=== PATIENT | male | born 1950 | race Caucasian/White ===

== ENCOUNTER → 2021-08-10 09:36 | Outpatient (BNVA) | payer MEDICARE, SELFPAY | PROVIDERS: PCP Internal Medicine Geriatric Medicine; Referring Provider Internal Medicine Geriatric Medicine; Visit Provider Internal Medicine | DX: I10 Essential (primary) hypertension (principal); R07.2 Precordial pain; E78.5 Hyperlipidemia, unspecified; E11.8 Type 2 diabetes mellitus with unspecified complications | CPT/HCPCS: 93005; 99202 ==

== ENCOUNTER 2025-04-21 23:46 | Inpatient (IN) | payer OTHER, SELFPAY ==
--- NOTE | ~2025-04-21 | XR_ITS ---
CLINICAL HISTORY: SOB 1 view chest x-ray Comparison: None provided Findings: Perihilar edema or infiltrates and small layering right-sided effusion. Asymmetric elevation of the right hemidiaphragm. Enlarged cardiac silhouette. No acute fracture. IMPRESSION: Perihilar edema or infiltrates and small layering right-sided effusion. This document has been electronically signed by: Tyrell Alonso MD, PHD on 04/22/2025 01:15:25
--- NOTE | ~2025-04-21 | CT_ITS ---
EXAMINATION: CT CHEST WITHOUT IV CONTRAST INDICATION: hypoxia COMPARISON: Correlation is made with an AP portable view of the chest performed earlier in the day. TECHNIQUE: Helical CT scan of the chest was performed without intravenous contrast. Coronal and sagittal reformatted images were generated and reviewed. This CT exam was performed with one or more of the following dose reduction techniques: automated exposure control, adjustment of the mA and/or kV according to patient size, use of iterative reconstruction technique. DLP: 190 mGy-cm CHEST: THYROID: The thyroid is unremarkable. LUNGS: There is near complete opacification of the right lower lobe and partial opacification of the right middle lobe, consistent with atelectasis or pneumonia. There is elevation of the right hemidiaphragm. There is subsegmental atelectasis in the left lower lobe. MEDIASTINUM: There is no mediastinal lymphadenopathy. ANUSHKA: Evaluation of the hilar regions is limited by lack of intravenous contrast material. CARDIOVASCULATURE: The heart is normal in size. There is no pericardial effusion. The thoracic aorta is normal in caliber. DEGREE OF CORONARY CALCIFICATION: mild PLEURA: There is a small right pleural effusion. No pneumothorax. MAIN AIRWAYS: The mainstem bronchi and proximal branches are patent. AXILLA: There is no axillary lymphadenopathy. BONES AND SOFT TISSUES: There is degenerative disc disease of the spine. UPPER ABDOMEN: The visualized portions of the liver, spleen, and adrenals have an unremarkable unenhanced appearance. CT/CT chest wo IV con IMPRESSION: Near complete opacification of the right lower lobe and partial opacification of the right middle lobe, consistent with atelectasis or pneumonia. Small right pleural effusion. Electronically signed by: Ye Cadena MD 04/22/2025 11:49 AM EDT
[2025-04-21 23:57] VITALS: BP 136/73; PULSE 77; O2SAT 86; BMI 43.8
--- NOTE | 2025-04-21 23:57 | ECG_ITS ---
Test Reason : RE PEAT EKG Blood Pressure : */* mmHG Vent. Rate : 65 BPM Atrial Rate : 65 BPM P-R Int : 312 ms QRS Dur : 118 ms QT Int : 432 ms P-R-T Axes : 59 -32 -8 degrees QTcB Int : 449 ms Artifact in tracing Sinus rhythm with 1st degree A-V block Left axis deviation Low voltage QRS Incomplete right bundle branch block Nonspecific T wave abnormality Abnormal ECG When compared with ECG of 21-Apr-2025 23:54, Premature atrial complexes are no longer Present Referred By: Madeline Garcia Electronically Signed By: ADRIAN MUNOZ
[2025-04-22] VITALS (27 sets, daily range): BP systolic 97–164; BP diastolic 43–85; PULSE 63–78; RESP 11–26; TEMP 36.2–36.7; O2SAT 16–95
--- NOTE | 2025-04-22 00:04 | ED_ITS ---
HPI - General Adult General Chief complaint: Altered Mental Status Stated complaint: sob Time Seen by Provider: 04/21/25 23:57 Source: patient, EMS, RN notes reviewed, old records reviewed and interpreter translator Mode of arrival: EMS Limitations: language barrier and altered mental status History of Present Illness ED Provider: Dr. Madeline Garcia HPI narrative: 75-year-old male with a history of COPD, hypertension and CHF presenting via EMS with reported altered mental status and shortness of breath. Evidently the patient's PRODUCT HANDLER called 911 due to increasing confusion. EMS noted his oxygen level to be 80% on room air upon their arrival to the home. Oxygen level improved to 87% on 3 L nasal cannula oxygen. Patient is describing low back pain which is a chronic issue for him and foot cramping but otherwise has no complaints. He is somewhat altered and unable to give any further history. EMS reports blood sugar of 170. Last took his oxycodone at 9:00 p.m. Related Data Home Medications ?Medication ?Instructions ?Recorded ?Confirmed aspirin 81 mg tablet,delayed 81 mg PO DAILY 08/10/21 release furosemide 20 mg tablet 20 mg PO DAILY 08/10/21 glipizide 5 mg tablet, extended 5 mg PO QAM 08/10/21 release 24 hr insulin detemir U-100 100 unit/mL unit subcut 08/10/21 subcutaneous solution (Levemir U-100 Insulin) lisinopril 10 mg tablet 10 mg PO DAILY 08/10/21 melatonin 3 mg tablet 3 mg PO BEDTIME PRN insomnia 08/10/21 omeprazole 20 mg capsule,delayed 20 mg PO DAILY release oxycodone-acetaminophen 5 mg-325 1 tab PO Q8H PRN 07/1908/10/21 mg tablet pravastatin 40 mg tablet 40 mg PO BEDTIME 08/10/21 Allergies Allergy/AdvReac Type Severity Reaction Status Date / Time No Known Allergies Allergy Verified 04/22/25 00:00 Review of Systems 2 Review of Systems: Yes Unobtainable due to mental status PMFSH Past Medical History Source: old records reviewed and nursing notes reviewed Medical History Other and unspecified hyperlipidemia Essential hypertension Type 2 diabetes mellitus with unspecified complications Surgical History No pertinent past surgical history Family History Family History Mother Heart disease HTN (hypertension) Brother HTN (hypertension) Heart disease Father Diabetes Heart disease Social History Social History Patient Tobacco Use Status: Former Tobacco user Advance Directives: No Advance Directives Information Provided: Yes Physical Exam ED Exam Exam: GENERAL: Chronically ill-appearing, moderate respiratory distress, appears uncomfortable. SKIN: Normal skin color for ethnicity, warm, dry, no rashes noted. HEENT: Normocephalic, atraumatic, no stridor, EOMI. NECK: Soft, supple, full ROM, midline structures nontender, no step-offs, no deformities, no lymphadenopathy. CHEST: Heart regular rhythm, symmetric chest rise and fall. PULMONARY: Coarse lung sounds bilaterally, diminished at the bases, tachypnea, moderate respiratory distress with poor air movement, no wheezes. ABDOMINAL: Soft, protuberant nontender, quiet bowel sounds in all quadrants. : Deferred. MUSCULOSKELETAL: Normal tone, full range of motion, no deformities, 2+ peripheral edema bilaterally. NEURO: Alert and oriented to person, CN II through XII intact, no focal neurologic deficits. PSYCHIATRIC: Anxious affect, appropriate demeanor. Vital Signs: Vital Signs - 24 hr 04/22/25 01:39 04/22/25 01:44 04/22/25 02:56 Temperature Pulse Rate 67 67 Respiratory Rate 22 H 20 Blood Pressure 152/76 H 136/70 Pulse Oximetry 95 95 Oxygen Delivery Method BiPAP BiPAP Oxygen Flow Rate 04/22/25 03:32 04/22/25 04:05 04/22/25 05:03 Temperature 97.6 F Pulse Rate 66 Respiratory Rate 22 H 22 H Blood Pressure 140/72 H 120/43 L Pulse Oximetry 89 L Oxygen Delivery Method BiPAP Oxygen Flow Rate 15 BMI result Body Mass Index 43.8 Course Reevaluation(s) Reevaluation #1: Used single lower target volume due to history of heart failure. Patient is not hypotensive though he is flagging for sepsis with COPD exacerbation, BiPAP requirement and respiratory rate. He has been covered with antibiotics including Rocephin and doxycycline. Initial lactic of 1.5. I?m doing a reperfusion exam at 0327 time and found continued confusion. Arterial Oxygen Saturation: 94% on BiPAP Vital Sign Review: Blood pressure is 136/70, heart rate 67 respiratory rate of 20, oxygen saturation 95% on BiPAP 60% FiO2. Cardiopulmonary Assessment: Heart: Normal sinus rhythm, rate in the 60s, no murmur heard Lungs: Slight tachypnea, diminished movement at the bases, relatively unchanged Peripheral Pulse Evaluation: Pulses: Strong peripheral pulses in all extremities Capillary Refill Evaluation: Brisk capillary refill in all extremities Skin Exam color/condition: Normal skin color ethnicity, dry and warm Urine Output: No urine output since arriving to the emergency department Time: 03:27 Medications Administered Discontinued Medications Generic Name Dose Route Start Last Admin Trade Name Erendira PRN Reason Stop Dose Admin Ceftriaxone Sodium 1 gm 04/22/25 03:15 04/22/25 03:27 Ceftriaxone Sodium 1 Gm Vial IVPUSH 04/22/25 03:16 1 gm ONCE ONE Administration Furosemide 40 mg 04/22/25 03:23 04/22/25 03:32 Furosemide 40 Mg/4 Ml Vial IVPUSH 04/22/25 03:24 40 mg ONCE ONE Administration Protocol Doxycycline Hyclate 100 mg/ 250 mls @ 166.67 mls/hr 04/22/25 03:15 04/22/25 06:05 Sodium Chloride IV 04/22/25 04:44 Infused ONCE ONE Infusion Medical Decision Making Medical Decision Making MDM Narrative: Patient presents in respiratory distress. Differential diagnosis includes flash pulmonary edema, COPD exacerbation, pneumothorax, pneumonia, ACS, pulmonary embolism, metabolic acidosis, among many others. The serious nature of the patient's symptoms makes this presentation complex, with potential for significant, worsening morbidity and mortality without immediate treatment/intervention. Patient immediately placed on a non-rebreather which improved his oxygenation from 50% on room air to 95% on 15 L. we will attempt to transition to OxyMask. He is moving air and has no wheezes on my exam however, his substantial hypoxia is concerning. We will check for COVID-19, CHF and COPD exacerbations, add lactic and cultures to his workup. He has no fever but is somewhat altered. Foul-smelling urine. EKG is nonischemic. 3:32 AM 04/22/2025 (Dr. Madeline Garcia, D.O.) patient remains acidotic, hypercarbic. His BiPAP is somewhat ineffective but he is having a hard time keeping it on. We will continue to attempt BiPAP with a better fitting mask. Contacted hospitalist who is refusing admission due to poor response to BiPAP so far. They agree that his condition would benefit from ICU level of care. We will contact retail service representative, Dr. Cantu. 6:44 AM 04/22/2025 (Dr. Madeline Garcia, D.O.) blood gas has not improved by much. His pH has improved to 7.35 however, his pCO2 after 6 hours on BiPAP is only down to 77. Case discussed with Dr. Cantu, who agrees with plan for admission to ICU. Admitted in serious condition. Differential Diagnosis Differential Diagnoses: The differential diagnosis associated with the presentation includes (As above) Admission/Observation Consideration of admission/observation: Escalation of care including admission/observation considered Lab Data MDM Lab Attestation statement: I reviewed the patient's lab results. 04/22/25 00:27 04/22/25 00:27 Labs: Lab Results 04/22/25 04/22/25 04/22/25 Range/Units 00:16 00:27 00:30 WBC 6.4 (4.8-10.8) X10*3/uL RBC 6.64 H (4.60-5.80) X10*6/uL Hgb 17.1 (14.0-18.0) g/dl Hct 56.8 H (42.0-52.0) % MCV 85.5 (80.0-98.0) fL MCH 25.8 L (27.0-33.0) pg MCHC 30.1 L (31.0-36.0) g/dl RDW 19.1 H (11.0-16.0) % Plt Count 181 (160-400) X10*3/uL MPV 10.8 (9.4-12.4) fL Immature Gran % (Auto) 1.1 H (0.0-0.4) % Neut % (Auto) 83.1 H (45-73) % Lymph % (Auto) 9.2 L (20-40) % [place] % (Auto) 5.6 (2-11) % Eos % (Auto) 0.5 (0-4) % Baso % (Auto) 0.5 (0-2) % Lymph # (Auto) 0.6 L (1.2-4.9) X10*3/uL [place] # (Auto) 0.4 (0.1-1.2) X10*3/uL Eos # (Auto) 0.0 (0.0-0.4) X10*3/uL Baso # (Auto) 0.0 (0.0-0.2) X10*3/uL Abs Immat Gran (auto) 0.07 H (0.00-0.03) X10*3/uL Absolute Neuts (auto) 5.3 (2.0-8.3) x10*3/uL Absolute Nucleated RBC 0.080 H (0.0-0.012) X10*3/uL Nucleated RBC % (auto) 1.3 H (0.0-0.2) /100WBC PT 15.1 H (10.9-12.4) SEC INR 1.3 H (0.9-1.1) VBG pH (7.32-7.43) VBG pCO2 mmHg VBG pO2 mmHg VBG HCO3 (22-26) mmol/L VBG O2 Saturation % VBG Base Excess mmol/L Sodium 148 H (135-145) mmol/L Potassium 4.8 (3.3-5.1) mmol/L Chloride 102 (96-108) mmol/L Carbon Dioxide 38 H (22-29) mmol/L Anion Gap 13 (12-20) BUN 22 H (9-16) mg/dL Creatinine 1.38 (0.5-1.4) mg/dL Estim Creat Clear Calc 67.7 Estimated GFR 50 Random Glucose 112 (60-115) mg/dL Lactic Acid 1.5 (0.5-2.0) mmol/L Calcium 9.1 (8.4-10.2) mg/dL Magnesium 1.9 (1.6-2.6) mg/dL Total Bilirubin 1.1 H (0.0-1.0) mg/dL AST 18 (5-37) U/L ALT 16 (0-40) U/L Alkaline Phosphatase 103 (39-117) U/L Troponin I High Sens 40.6 H (<3.5-35.0) ng/L B-Natriuretic Peptide 384 H (<100) pg/mL Total Protein 7.4 (6.5-8.0) g/dL Albumin 4.2 (3.5-5.0) g/dL Urine Color Urine Appearance Urine pH (5.0-9.0) Ur Specific [place] (1.005-1.025) Urine Protein (Neg-Trace) mg/dL Urine Glucose (UA) (Negative) mg/dL Urine Ketones (Negative) mg/dL Urine Blood (Negative) Urine Nitrite (Negative) Ur Leukocyte Esterase (Negative) Urine Opiates Screen (Not Detect) Ur Buprenorphine Scrn (Not Detect) ng/mL Ur Oxycodone Screen (Not Detect) ng/mL Urine Methadone Screen (Not Detect) ng/mL Urine Fentanyl Screen (Not Detect) Ur Barbiturates Screen (Not Detect) Ur Phencyclidine Scrn (Not Detect) Ur Amphetamines Screen (Not Detect) U Benzodiazepines Scrn (Not Detect) Urine Cocaine Screen (Not Detect) U Marijuana (THC) Screen (Not Detect) Influenza Type A (PCR) NEGATIVE (Negative) Influenza Type B (PCR) NEGATIVE (Negative) RSV RNA Qual (PCR) NEGATIVE (Negative) SARS-CoV-2 RNA (RT-PCR) NEGATIVE (Negative) 04/22/25 04/22/25 04/22/25 Range/Units 00:39 03:04 04:13 WBC (4.8-10.8) X10*3/uL RBC (4.60-5.80) X10*6/uL Hgb (14.0-18.0) g/dl Hct (42.0-52.0) % MCV (80.0-98.0) fL MCH (27.0-33.0) pg MCHC (31.0-36.0) g/dl RDW (11.0-16.0) % Plt Count (160-400) X10*3/uL MPV (9.4-12.4) fL Immature Gran % (Auto) (0.0-0.4) % Neut % (Auto) (45-73) % Lymph % (Auto) (20-40) % [place] % (Auto) (2-11) % Eos % (Auto) (0-4) % Baso % (Auto) (0-2) % Lymph # (Auto) (1.2-4.9) X10*3/uL [place] # (Auto) (0.1-1.2) X10*3/uL Eos # (Auto) (0.0-0.4) X10*3/uL Baso # (Auto) (0.0-0.2) X10*3/uL Abs Immat Gran (auto) (0.00-0.03) X10*3/uL Absolute Neuts (auto) (2.0-8.3) x10*3/uL Absolute Nucleated RBC (0.0-0.012) X10*3/uL Nucleated RBC % (auto) (0.0-0.2) /100WBC PT (10.9-12.4) SEC INR (0.9-1.1) VBG pH 7.25 L 7.28 L (7.32-7.43) VBG pCO2 89 88 mmHg VBG pO2 32 45 mmHg VBG HCO3 39 H 42 H (22-26) mmol/L VBG O2 Saturation 35.0 64.0 % VBG Base Excess 7.3 11.0 mmol/L Sodium (135-145) mmol/L Potassium (3.3-5.1) mmol/L Chloride (96-108) mmol/L Carbon Dioxide (22-29) mmol/L Anion Gap (12-20) BUN (9-16) mg/dL Creatinine (0.5-1.4) mg/dL Estim Creat Clear Calc Estimated GFR Random Glucose (60-115) mg/dL Lactic Acid (0.5-2.0) mmol/L Calcium (8.4-10.2) mg/dL Magnesium (1.6-2.6) mg/dL Total Bilirubin (0.0-1.0) mg/dL AST (5-37) U/L ALT (0-40) U/L Alkaline Phosphatase (39-117) U/L Troponin I High Sens 41.3 H (<3.5-35.0) ng/L B-Natriuretic Peptide (<100) pg/mL Total Protein (6.5-8.0) g/dL Albumin (3.5-5.0) g/dL Urine Color Urine Appearance Urine pH (5.0-9.0) Ur Specific [place] (1.005-1.025) Urine Protein (Neg-Trace) mg/dL Urine Glucose (UA) (Negative) mg/dL Urine Ketones (Negative) mg/dL Urine Blood (Negative) Urine Nitrite (Negative) Ur Leukocyte Esterase (Negative) Urine Opiates Screen (Not Detect) Ur Buprenorphine Scrn (Not Detect) ng/mL Ur Oxycodone Screen (Not Detect) ng/mL Urine Methadone Screen (Not Detect) ng/mL Urine Fentanyl Screen (Not Detect) Ur Barbiturates Screen (Not Detect) Ur Phencyclidine Scrn (Not Detect) Ur Amphetamines Screen (Not Detect) U Benzodiazepines Scrn (Not Detect) Urine Cocaine Screen (Not Detect) U Marijuana (THC) Screen (Not Detect) Influenza Type A (PCR) (Negative) Influenza Type B (PCR) (Negative) RSV RNA Qual (PCR) (Negative) SARS-CoV-2 RNA (RT-PCR) (Negative) 04/22/25 04/22/25 Range/Units 05:21 06:05 WBC (4.8-10.8) X10*3/uL RBC (4.60-5.80) X10*6/uL Hgb (14.0-18.0) g/dl Hct (42.0-52.0) % MCV (80.0-98.0) fL MCH (27.0-33.0) pg MCHC (31.0-36.0) g/dl RDW (11.0-16.0) % Plt Count (160-400) X10*3/uL MPV (9.4-12.4) fL Immature Gran % (Auto) (0.0-0.4) % Neut % (Auto) (45-73) % Lymph % (Auto) (20-40) % [place] % (Auto) (2-11) % Eos % (Auto) (0-4) % Baso % (Auto) (0-2) % Lymph # (Auto) (1.2-4.9) X10*3/uL [place] # (Auto) (0.1-1.2) X10*3/uL Eos # (Auto) (0.0-0.4) X10*3/uL Baso # (Auto) (0.0-0.2) X10*3/uL Abs Immat Gran (auto) (0.00-0.03) X10*3/uL Absolute Neuts (auto) (2.0-8.3) x10*3/uL Absolute Nucleated RBC (0.0-0.012) X10*3/uL Nucleated RBC % (auto) (0.0-0.2) /100WBC PT (10.9-12.4) SEC INR (0.9-1.1) VBG pH 7.35 (7.32-7.43) VBG pCO2 77 mmHg VBG pO2 61 mmHg VBG HCO3 43 H (22-26) mmol/L VBG O2 Saturation 87.0 % VBG Base Excess 13.3 mmol/L Sodium (135-145) mmol/L Potassium (3.3-5.1) mmol/L Chloride (96-108) mmol/L Carbon Dioxide (22-29) mmol/L Anion Gap (12-20) BUN (9-16) mg/dL Creatinine (0.5-1.4) mg/dL Estim Creat Clear Calc Estimated GFR Random Glucose (60-115) mg/dL Lactic Acid (0.5-2.0) mmol/L Calcium (8.4-10.2) mg/dL Magnesium (1.6-2.6) mg/dL Total Bilirubin (0.0-1.0) mg/dL AST (5-37) U/L ALT (0-40) U/L Alkaline Phosphatase (39-117) U/L Troponin I High Sens (<3.5-35.0) ng/L B-Natriuretic Peptide (<100) pg/mL Total Protein (6.5-8.0) g/dL Albumin (3.5-5.0) g/dL Urine Color Yellow Urine Appearance Clear Urine pH 5.5 (5.0-9.0) Ur Specific [place] 1.010 (1.005-1.025) Urine Protein Negative (Neg-Trace) mg/dL Urine Glucose (UA) Negative (Negative) mg/dL Urine Ketones Negative (Negative) mg/dL Urine Blood Negative (Negative) Urine Nitrite Negative (Negative) Ur Leukocyte Esterase Negative (Negative) Urine Opiates Screen Not Detected (Not Detect) Ur Buprenorphine Scrn Not Detected (Not Detect) ng/mL Ur Oxycodone Screen Not Detected (Not Detect) ng/mL Urine Methadone Screen Not Detected (Not Detect) ng/mL Urine Fentanyl Screen Not Detected (Not Detect) Ur Barbiturates Screen Not Detected (Not Detect) Ur Phencyclidine Scrn Not Detected (Not Detect) Ur Amphetamines Screen Not Detected (Not Detect) U Benzodiazepines Scrn Not Detected (Not Detect) Urine Cocaine Screen Not Detected (Not Detect) U Marijuana (THC) Screen Not Detected (Not Detect) Influenza Type A (PCR) (Negative) Influenza Type B (PCR) (Negative) RSV RNA Qual (PCR) (Negative) SARS-CoV-2 RNA (RT-PCR) (Negative) Independent Interpretation I performed an independent interpretation of an: EKG Interpretation: My independent interpretation of the ECG reveals normal sinus rhythm with rate of 78, left axis deviation, first-degree AV block, right bundle branch block, no ST elevations or depressions to suggest ischemic changes, relatively unchanged from previous on 08/10/2021. Radiology Impression Discussion of test interpretation with radiology: I have reviewed the radiologist's reading. Radiologist Impression: 1 view chest x-ray Comparison: None provided Findings: Perihilar edema or infiltrates and small layering right-sided effusion. Asymmetric elevation of the right hemidiaphragm. Enlarged cardiac silhouette. No acute fracture. IMPRESSION: Perihilar edema or infiltrates and small layering right-sided effusion. This document has been electronically signed by: Tyrell Alonso MD, PHD on 04/22/2025 01:15:25 Social Determinants Patient?s care significantly limited by Social Determinants of Health including: Problems related to primary support group Critical Care Time Critical Care Time Critical Care Time: Yes Total Critical Care Time: 55 Attestation: CRITICAL CARE TIME: 55 minutes of critical care time was spent in direct patient care at the bedside or in the immediate area with this patient. Critical care was necessary to treat or prevent imminent or life-threatening deterioration of the following conditions acute hypoxic and hypercarbic respiratory failure due to COPD exacerbation versus CHF exacerbation versus obesity hypoventilation. This patient is high risk for decompensation and/or . This time was spent assessing and managing the patient, interpreting labs and imaging, coordinating care with other medical providers, gathering history from either the patient, their representatives, EMS or chart review, and discussing management with ICU team. Discharge Plan Discharge Clinical Impression: Acute respiratory failure with hypoxia and hypercarbia, Acute encephalopathy, Hypernatremia, Acute exacerbation of CHF (congestive heart failure), Acute exacerbation of chronic obstructive pulmonary disease Patient Disposition: Admitted As Inpatient Print Language: Czech
[2025-04-22 00:41] LABS: MANUAL DIFF FLAG NO
[2025-04-22 00:42] LABS: Hemoglobin 17.1 g/dl (14.0-18.0); Imm Gran Abs Auto 0.07 X10*3/uL (0.00-0.03); Imm Gran Pct Auto 1.1 % (0.0-0.4); Lymphocytes Absolute Auto 0.6 X10*3/uL (1.2-4.9); Mean Corpuscular HGB Conc 30.1 g/dl (31.0-36.0); Mean Corpuscular Hemoglobin 25.8 pg (27.0-33.0); Mean Corpuscular Volume 85.5 fL (80.0-98.0); NRBC Abs Auto 0.080 X10*3/uL (0.0-0.012); Platelet Count 181 X10*3/uL (160-400); Red Blood Count 6.64 X10*6/uL (4.60-5.80); Venous Blood Gas Refer to POC result; White Blood Count 6.4 X10*3/uL (4.8-10.8)
[2025-04-22 00:44] LABS: VBG HCO3 39 mmol/L (22-26); VBG O2 % Saturation 35.0 %
[2025-04-22 00:45] LABS: Hematocrit 56.8 % (42.0-52.0); NRBC Pct Auto 1.3 /100WBC (0.0-0.2)
[2025-04-22 00:47] LABS: INTERNATIONAL NORM RATIO 1.3 (0.9-1.1); Prothrombin Time 15.1 SEC (10.9-12.4)
[2025-04-22 00:55] LABS: Alanine Aminotransferase 16 U/L (0-40); Albumin Level 4.2 g/dL (3.5-5.0); Alkaline Phosphatase 103 U/L (39-117); Anion Gap 13 (12-20); Aspartate Amino Transferase 18 U/L (5-37); Blood Urea Nitrogen 22 mg/dL (9-16); Calcium 9.1 mg/dL (8.4-10.2); Carbon Dioxide 38 mmol/L (22-29); Chloride 102 mmol/L (96-108); Creatinine Clr Calc Pharmacy 67.7; Estimated Glomerular Filt Rate 50; Magnesium 1.9 mg/dL (1.6-2.6); Potassium 4.8 mmol/L (3.3-5.1); Sodium 148 mmol/L (135-145); Total Protein 7.4 g/dL (6.5-8.0)
[2025-04-22 01:02] LABS: B Type Natriuretic Peptide 384 pg/mL (<100); Troponin-I High Sensitivity 40.6 ng/L (<3.5-35.0)
[2025-04-22 01:05] LABS: Resp Syncy Virus RNA Qual PCR NEGATIVE (Negative); SARS COV2 PCR INHOUSE NEGATIVE (Negative)
--- NOTE | 2025-04-22 02:46 | PC.NURSE ---
Addendum entered by Melissa Villela RN 04/22/25 07:09: RN to Rn report called to Torri in ICU. Addendum entered by Melissa Villela RN 04/22/25 05:08: pt noted to have hallucinations reaching out for things that are not there and talking to himself. Pt removed both IVs, catheter intact, bleeding controlled and dry clean dressing applied Pt also removed monitor wires, bipap mask and gown. 18G IV placed in left upper arm, pt tolerated well. pt educated on importance of keeping mask and monitor wires on. pts needs met at this time. call mayo is within reach. plan of care ongoing . Original Note: pt biba from home, VETERINARY PARASITOLOGIST reporting pt having increased confusion and O2 sat in the 80s. Pt has hx of COPD and CHF but not on O2 at home per VETERINARY PARASITOLOGIST. Upon arrival to the ED pt immediately placed on nonrebreather 15L as O2 sat noted to be in 60s on room air and pt improved to 95%. Pt primarily swiss speaking only, poor historian, alert to self, place, and able to answer questions appropriately. Pt appears unkempt and smells of foul urine. Pt complaining of 10/10 back pain that is chronic. Pt has 20G IV in left hand placed by EMS. Pt changed over into hospital gown, placed on the monitor, and male purwick applied. Pending urine collection at this time.
[2025-04-22 03:07] LABS: Venous Blood Gas Refer to POC result
[2025-04-22 03:09] LABS: VBG HCO3 42 mmol/L (22-26); VBG O2 % Saturation 64.0 %
[2025-04-22] MEDS: Furosemide 40 MG/4 ML VIAL IVPUSH (03:32)
[2025-04-22 04:39] LABS: Troponin-I High Sensitivity 41.3 ng/L (<3.5-35.0)
[2025-04-22 05:31] LABS: Appearance Urine Clear; Glucose Urine UA Negative (Negative); PH 5.5 (5.0-9.0); Specific Gravity - Urine 1.010 (1.005-1.025)
[2025-04-22 06:03] LABS: Cannabinoid Screen Urine Not Detected (Not Detect)
[2025-04-22 06:07] LABS: Venous Blood Gas Refer to POC result
[2025-04-22 06:09] LABS: VBG HCO3 43 mmol/L (22-26); VBG O2 % Saturation 87.0 %
[2025-04-22] MEDS: Lidocaine 4 % Patch ADH..PATCH 1 PATCH TRANSDERMA (09:59)
--- NOTE | 2025-04-22 10:06 | PHA.MEDREC ---
Addendum entered by Josh Daniels RPh 04/22/25 10:16: MED REC REVIEWED BY [facility] Original Note: Pharmacy Consult ? Medication Reconciliation Pharmacy has completed the medication reconciliation. Spoke with Jadyn ([phone];contact in as Other Relationship) and she was able to confirm the pt medications. per Jadyn; pt takes Lantus 25 units in the morning, Furosemide 20mg; pt has not filled that since 10/23 and I spoke with pt pharmacy ([facility]) and they confirmed the pt last picked that up 10/24for 90.
--- NOTE | 2025-04-22 10:11 | P.HPCC_ITS ---
History of Present Illness Date of Service: 04/22/25 Chief Complaint: Respiratory distress 75-year-old gentleman with underlying hypertension, diabetes mellitus, COPD, chronic back pain, and unspecified congestive heart failure present in on 04/22/2025 complaining of slowly worsening dyspnea. On ER patient noted to be hypoxic and hypercapnic requiring BiPAP support. He was started on empiric diuresis and admitted to the intensive care unit. Review of Systems 2 Constitutional: Constitutional: Denies daytime sleepiness, Denies excessive sweating, Denies fatigue, Denies fever(s), Denies lethargy, Denies malaise, Denies night sweats, Denies snoring and Denies weight loss Eyes: Eyes: Denies blurry vision and Denies itchy eyes ENT: Denies nasal congestion, Denies post nasal drip, Denies sinus pain, Denies sinus pressure and Denies other ( Thrush) Cardiovascular: Cardiovascular: Denies chest pain, Denies pedal edema, Reports dyspnea, Reports dyspnea on exertion, Reports orthopnea and Denies paroxysmal nocturnal dyspnea Respiratory: Respiratory: Denies cough, Denies hemoptysis, Denies excessive phlegm production, Reports dyspnea, Reports dyspnea on exertion, Denies snoring and Denies wheezing Gastrointestinal: Gastrointestinal: Denies abdominal pain and Denies heartburn Musculoskeletal: Musculoskeletal: Reports back pain and Denies joint swelling Integumentary/Breasts: Skin/Breast: Denies rash Neurologic: Denies memory loss and Denies seizure-like activity Psychiatric: Psychiatric: Denies abnormal sleep pattern, Denies anxiety and Denies memory loss Endocrine: Endocrine: Denies excessive sweating, Denies fatigue and Denies heat intolerance Hematologic/Lymphatic: Hematologic/Lymphatic: Denies easy bruising Allergic/Immunologic: Allergic/Immunologic: Denies itchy eyes, Denies seasonal rhinorrhea and Denies wheezing PMFSH Past Medical History Medical History Other and unspecified hyperlipidemia Essential hypertension Type 2 diabetes mellitus with unspecified complications Family History Family History Mother Heart disease HTN (hypertension) Brother HTN (hypertension) Heart disease Father Diabetes Heart disease Surgical History Surgical History No pertinent past surgical history Social History Social History Household Members: Other Housing: Unknown / Unable to assess Do you presently have visiting nurse or other home services: No Patient Tobacco Use Status: Former Tobacco user Smoked in Last 30 Days: No Patient Interested in Nicotine Replacement: No Patient Given Instructions on How to Stop Smoking: No Second Hand Smoke Exposure: No Worship Healthcare Practices: Spiritism Advance Directives: No Advance Directives Information Provided: Yes Advance Directives on File: No Do you have a plan to hurt others: No Plan Recently lost weight without trying: No Eating poorly because of decreased appetite: No Nutrition Risks: On aspiration precautions Poor oral hygiene: Yes Meds Allergies Allergy/AdvReac Type Severity Reaction Status Date / Time No Known Allergies Allergy Verified 04/22/25 00:00 Active Medications: Current Medications Acetazolamide (Acetazolamide Sodium 500 Mg Vial) 375 mg IVPUSH BID [facility] Stop: 04/24/25 21:01 Last Admin: 04/22/25 09:59 Dose: 375 mg Lidocaine (Lidocaine 4 % Patch Adh..Patch) 1 patch TRANSDERMA DAILY [facility]; Protocol Last Admin: 04/22/25 09:59 Dose: 1 patch Home Medications ?Medication ?Instructions ?Recorded ?Confirmed ?Last Taken ?Type furosemide 20 mg tablet 20 mg PO DAILY 08/10/2103/11 Unknown History glipizide 5 mg tablet, extended 5 mg PO DAILY 08/10/21 04/22/25 Unknown History release 24 hr lisinopril 10 mg tablet 10 mg PO DAILY 08/10/2103/11 Unknown History omeprazole 20 mg capsule,delayed 20 mg PO DAILY@0630 1 10/10/20 04/22/25 Unknown History release oxycodone-acetaminophen 5 mg-325 1 tab PO Q8H PRN Pain 08/10/21 04/22/25 Unknown History mg tablet pravastatin 40 mg tablet 40 mg PO BEDTIME 08/10/21 Unknown History insulin glargine 100 unit/mL 25 unit subcut DAILY 03/1104/22/25 Unknown History subcutaneous solution (Lantus U-100 Insulin) Physical Exam 2 Vital Signs: Vital Signs: Last Vital Signs Temp 97.6 F 04/22/25 05:03 Pulse 68 04/22/25 10:00 Resp 17 04/22/25 10:00 BP 145/73 H 04/22/25 10:00 Pulse Ox 88 L 04/22/25 10:00 O2 Del Method BiPAP 04/22/25 10:00 O2 Flow Rate 15 04/22/25 05:03 FiO2 30 04/22/25 10:00 BMI result Body Mass Index 43.8 Const: General: no acute distress, alert and awake Nutritional Appearance: obese Eyes: Sclerae: sclerae normal EOM: EOMs intact bilaterally Neck: Neck: Yes no lymphadenopathy, Yes trachea midline and Yes supple Resp: Effort & Inspection: normal respiratory effort and no respiratory distress Auscultation: clear to auscultation bilaterally Cardio: Rate: regular rate Rhythm: regular rhythm Heart sounds: no gallops, no murmurs and no rubs GI: Palpation (GI): Soft to palpation and Other GI palpation findings present ( Nontender) Auscultation: normal bowel sounds Extrem: General: Yes no pedal edema, No clubbing and No cyanosis Results Labs 04/22/25 00:27 04/22/25 00:27 Labs: Laboratory Results - last 24 hr 04/22/25 04/22/25 04/22/25 00:16 00:27 00:30 MCV 85.5 MCH 25.8 L MCHC 30.1 L RDW 19.1 H Plt Count 181 MPV 10.8 Immature Gran % (Auto) 1.1 H Neut % (Auto) 83.1 H Lymph % (Auto) 9.2 L [place] % (Auto) 5.6 Eos % (Auto) 0.5 Baso % (Auto) 0.5 Lymph # (Auto) 0.6 L [place] # (Auto) 0.4 Eos # (Auto) 0.0 Baso # (Auto) 0.0 Abs Immat Gran (auto) 0.07 H Absolute Neuts (auto) 5.3 Absolute Nucleated RBC 0.080 H Nucleated RBC % (auto) 1.3 H PT 15.1 H INR 1.3 H VBG pH VBG pCO2 VBG pO2 VBG HCO3 VBG O2 Saturation VBG Base Excess Anion Gap 13 Estim Creat Clear Calc 67.7 Estimated GFR 50 Random Glucose 112 Lactic Acid 1.5 Calcium 9.1 Magnesium 1.9 Total Bilirubin 1.1 H AST 18 ALT 16 Alkaline Phosphatase 103 B-Natriuretic Peptide 384 H Total Protein 7.4 Albumin 4.2 Urine Color Urine Appearance Urine pH Ur Specific [place] Urine Protein Urine Glucose (UA) Urine Ketones Urine Blood Urine Nitrite Ur Leukocyte Esterase Urine Opiates Screen Ur Buprenorphine Scrn Ur Oxycodone Screen Urine Methadone Screen Urine Fentanyl Screen Ur Barbiturates Screen Ur Phencyclidine Scrn Ur Amphetamines Screen U Benzodiazepines Scrn Urine Cocaine Screen U Marijuana (THC) Screen Influenza Type A (PCR) NEGATIVE Influenza Type B (PCR) NEGATIVE RSV RNA Qual (PCR) NEGATIVE SARS-CoV-2 RNA (RT-PCR) NEGATIVE 04/22/25 04/22/25 04/22/25 00:39 03:04 05:21 MCV MCH MCHC RDW Plt Count MPV Immature Gran % (Auto) Neut % (Auto) Lymph % (Auto) [place] % (Auto) Eos % (Auto) Baso % (Auto) Lymph # (Auto) [place] # (Auto) Eos # (Auto) Baso # (Auto) Abs Immat Gran (auto) Absolute Neuts (auto) Absolute Nucleated RBC Nucleated RBC % (auto) PT INR VBG pH 7.25 L 7.28 L VBG pCO2 89 88 VBG pO2 32 45 VBG HCO3 39 H 42 H VBG O2 Saturation 35.0 64.0 VBG Base Excess 7.3 11.0 Anion Gap Estim Creat Clear Calc Estimated GFR Random Glucose Lactic Acid Calcium Magnesium Total Bilirubin AST ALT Alkaline Phosphatase B-Natriuretic Peptide Total Protein Albumin Urine Color Yellow Urine Appearance Clear Urine pH 5.5 Ur Specific [place] 1.010 Urine Protein Negative Urine Glucose (UA) Negative Urine Ketones Negative Urine Blood Negative Urine Nitrite Negative Ur Leukocyte Esterase Negative Urine Opiates Screen Not Detected Ur Buprenorphine Scrn Not Detected Ur Oxycodone Screen Not Detected Urine Methadone Screen Not Detected Urine Fentanyl Screen Not Detected Ur Barbiturates Screen Not Detected Ur Phencyclidine Scrn Not Detected Ur Amphetamines Screen Not Detected U Benzodiazepines Scrn Not Detected Urine Cocaine Screen Not Detected U Marijuana (THC) Screen Not Detected Influenza Type A (PCR) Influenza Type B (PCR) RSV RNA Qual (PCR) SARS-CoV-2 RNA (RT-PCR) 04/22/25 06:05 MCV MCH MCHC RDW Plt Count MPV Immature Gran % (Auto) Neut % (Auto) Lymph % (Auto) [place] % (Auto) Eos % (Auto) Baso % (Auto) Lymph # (Auto) [place] # (Auto) Eos # (Auto) Baso # (Auto) Abs Immat Gran (auto) Absolute Neuts (auto) Absolute Nucleated RBC Nucleated RBC % (auto) PT INR VBG pH 7.35 VBG pCO2 77 VBG pO2 61 VBG HCO3 43 H VBG O2 Saturation 87.0 VBG Base Excess 13.3 Anion Gap Estim Creat Clear Calc Estimated GFR Random Glucose Lactic Acid Calcium Magnesium Total Bilirubin AST ALT Alkaline Phosphatase B-Natriuretic Peptide Total Protein Albumin Urine Color Urine Appearance Urine pH Ur Specific [place] Urine Protein Urine Glucose (UA) Urine Ketones Urine Blood Urine Nitrite Ur Leukocyte Esterase Urine Opiates Screen Ur Buprenorphine Scrn Ur Oxycodone Screen Urine Methadone Screen Urine Fentanyl Screen Ur Barbiturates Screen Ur Phencyclidine Scrn Ur Amphetamines Screen U Benzodiazepines Scrn Urine Cocaine Screen U Marijuana (THC) Screen Influenza Type A (PCR) Influenza Type B (PCR) RSV RNA Qual (PCR) SARS-CoV-2 RNA (RT-PCR) Assessment and Plan (1) Acute respiratory failure with hypoxia and hypercarbia: Status: Acute (2) Type 2 diabetes mellitus with unspecified complications: Status: Acute (3) Essential hypertension: Status: Acute Plan Assessment: 75-year-old gentleman admitted with acute hypoxic and hypercapnic respiratory failure on a background of COPD and unspecified congestive heart failure initially requiring BiPAP support. Plan: Neuro: No acute issues. Cardiac: Likely underlying congestive heart failure, improving with diuresis. 2D echocardiogram is pending. Pulmonary: Acute hypoxic and hypercapnic respiratory failure likely secondary to congestive heart failure exacerbation requiring BiPAP support, continue to titrate off as tolerated. Renal: No acute issues. Endo: No acute issues. Underlying diabetes mellitus. GI: No acute issues. ID: No acute issues Heme/Onc: No acute issues. Psych: No acute issues. Miscellaneous: No acute issues. Prophylaxis: Heparin Diet: NPO while on BiPAP Critical care time spent: 60 minutes
--- NOTE | 2025-04-22 12:00 | CA_ITS ---
Transthoracic Echocardiogram Patient (Last, First, Middle): Rangel Calderon, Gender: Male Date of : 1950 Age: 75 Procedure Date: 04/22/2025 Procedure Type: Transthoracic Echocardiogram Location: ICU Height: 182.88 cm Weight: 146.06 kg BSA: 2.61 m2 Heart Rate: bpm BP: 149 / 71 mmHg Transportation Engineer: TO Referring MD: Tal Cantu MD Symptoms: dyspnea Study Quality: Fair, contrast ECG Rhythm: Sinus Conclusions: - The left ventricular systolic function is normal. The calculated ejection fraction is 64% by biplane method. - No obvious valvular pathology seen on this study. Findings Procedure Information Contrast agent, definity, is being given per protocol without apparent complications. Left Ventricle Normal left ventricular cavity size. The left ventricular systolic function is normal. The calculated ejection fraction is 64% by biplane method. There is no evidence of regional wall motion abnormalities. Diastolic function is normal for age. There is mild septal asymmetric hypertrophy. Right Ventricle Mildly increased right ventricular cavity size. There is normal right ventricular systolic function. Atria Both atria are normal in size. Aortic Valve There is a normal trileaflet aortic valve. There is no aortic valve stenosis. There is no aortic valve regurgitation. Mitral Valve The mitral valve appears normal. There is no mitral valve regurgitation. There is no mitral valve stenosis. Pulmonic Valve The pulmonic valve is likely normal. Tricuspid Valve There is trace tricuspid valve regurgitation. Tricuspid regurgitation envelope is inadequate for calculation of right ventricular systolic pressure. There is no evidence of pulmonary hypertension. Great Vessels The asc aorta is normal in size. Venous The inferior vena cava is mildly dilated and collapses less than 50% with inspiration. (on Bipap). Prior Study Comparison No prior study available for comparison. Recommendations, Care & Conclusions No obvious valvular pathology seen on this study. Measurements 2D Linear Measurements IVSd: 1.22 0.6-0.9/0.6-1.0 cm LVIDd: 5.21 3.9-5.3/4.2-5.9 cm LVIDd Index: 2.00 2.4-3.2/2.2-3.1 cm/m2 LVIDs: 3.34 2.0-3.6 cm LVPWd: 1.12 0.7-1.1 cm LA Diam: 2.90 2.7-3.8/3.0-4.0 cm LAIDs Index: 1.11 1.5-2.3 cm/m2 LV Mass: 300.51 67-162/88-224 g LV Mass Index: 115.14 43-95/49-115 g/m2 LVOT Diam: 2.60 3.0+(-)1.3 cm 2D Systolic Function EF 4C: 64.80 >55% EF 2C: 63.80 >55% EF BiP: 63.60 >55% Mitral Valve MV Pk E: 0.65 MV PK A: 0.62 MV Decel Time: 255.00 E/A: 1.00 E'Lateral: 9.90 E'Medial: 4.24 E/E' Med: 15.30 E/E' Lat: 6.50 PHT: 75.00 MVA PHT: 2.93 Decel [place]: 2.54 Aortic Valve AoV Pk Atif: 1.32 AoV Mn Atif: 0.99 AoV VTI: 0.30 AoV Pk Grad: 7.00 Aov Mn Grad: 4.00 [place] Cont.VTI: 3.90 LVOT LVOT Pk Atif: 0.99 LVOT Mn Atif: 0.70 LVOT VTI: 0.22 LVOT Pk Grad: 4.00 LVOT Mn Grad: 2.00 LVOT Diam: 2.60 LVOT Area: 5.31 Diastolic Function MV Pk E: 0.65 MV Pk A: 0.62 E/A: 1.00 E'Medial: 4.24 E/E' Med: 15.30 E' Laterial: 9.90 E/E' Lat: 6.50 Right Ventricle TAPSE (mm): 23.90 TVS' Atif: 14.30 Great Vessels Aorta Sinus of Valsalva: 3.83 2.0-3.5 cm Ao Asc: 3.70 2.1-3.4 cm Updated in Other Vendor System with Status of Final Girma Pruitt MD electronically signed on 04/23/2025 2:04:07 PM with status of Final
[2025-04-22 12:23] LABS: Glucose, Whole Blood 60 mg/dL (60-115)
[2025-04-22 14:22] LABS: Glucose, Whole Blood 105 mg/dL (60-115)
--- NOTE | 2025-04-22 14:34 | MHC.CM.PN ---
Pt in the ICU, oriented x 2, unable to engage in CM intake assessment. No HCP on file. This CM contacted pts primary contact Jadyn, with [employer] telephonic pres[employer] clergy. Per Jadyn, pt lives alone, has [employer] for 46.75 hours/week, uses a cane and a walker, [employer] can transport pt home at discharge. Per Jadyn, pts daughter Lorena is the HCP, this CM called and left a voicemail for her with the presbyterian clergy, awaiting return call. Per Jadyn, pt is (for years) from his spouse who is listed as the emergency contact. IMM given 04/22. PCP: Dr. Ocampo Name
[2025-04-22 15:59] LABS: Glucose, Whole Blood 85 mg/dL (60-115)
[2025-04-22 20:55] LABS: Glucose, Whole Blood 88 mg/dL (60-115)
[2025-04-22 21:58] LABS: Glucose, Whole Blood 100 mg/dL (60-115)
[2025-04-23] VITALS (29 sets, daily range): BP systolic 103–145; BP diastolic 38–74; PULSE 63–81; RESP 12–26; TEMP 35.8–36.6; O2SAT 86–95; BMI 42.2
[2025-04-23 01:56] LABS: Glucose, Whole Blood 87 mg/dL (60-115)
[2025-04-23 03:46] LABS: Glucose, Whole Blood 85 mg/dL (60-115)
[2025-04-23 05:35] LABS: VBG HCO3 39 mmol/L (22-26); VBG O2 % Saturation 67.0 %
[2025-04-23 05:44] LABS: Venous Blood Gas Refer to POC result
[2025-04-23 05:48] LABS: MANUAL DIFF FLAG NO
[2025-04-23 05:49] LABS: Hematocrit 54.3 % (42.0-52.0); Hemoglobin 16.6 g/dl (14.0-18.0); Imm Gran Abs Auto 0.03 X10*3/uL (0.00-0.03); Imm Gran Pct Auto 0.4 % (0.0-0.4); Lymphocytes Absolute Auto 1.0 X10*3/uL (1.2-4.9); Mean Corpuscular HGB Conc 30.6 g/dl (31.0-36.0); Mean Corpuscular Hemoglobin 26.0 pg (27.0-33.0); Mean Corpuscular Volume 85.1 fL (80.0-98.0); NRBC Abs Auto 0.030 X10*3/uL (0.0-0.012); NRBC Pct Auto 0.4 /100WBC (0.0-0.2); Platelet Count 160 X10*3/uL (160-400); Red Blood Count 6.38 X10*6/uL (4.60-5.80); White Blood Count 7.3 X10*3/uL (4.8-10.8)
[2025-04-23 06:05] LABS: Albumin Level 3.6 g/dL (3.5-5.0); Anion Gap 14 (12-20); Blood Urea Nitrogen 18 mg/dL (9-16); Calcium 9.1 mg/dL (8.4-10.2); Carbon Dioxide 34 mmol/L (22-29); Chloride 105 mmol/L (96-108); Creatinine Clr Calc Pharmacy 75.3; Estimated Glomerular Filt Rate 57; Magnesium 1.9 mg/dL (1.6-2.6); Potassium 5.4 mmol/L (3.3-5.1); Sodium 148 mmol/L (135-145)
[2025-04-23 06:14] LABS: Glucose, Whole Blood 86 mg/dL (60-115)
[2025-04-23 07:45] LABS: Glucose, Whole Blood 78 mg/dL (60-115)
[2025-04-23] MEDS: Lidocaine 4 % Patch ADH..PATCH 1 PATCH TRANSDERMA (08:47)
[2025-04-23] MEDS: 0.9 % Sodium Chloride Flush 3 ML SYRINGE IVFLUSH ×3 (08:47→23:48)
--- NOTE | 2025-04-23 09:54 | P.PNCC_ITS ---
Subjective Subjective Date of Service: 04/23/25 Interval History: 75-year-old gentleman with underlying hypertension, diabetes mellitus, COPD, chronic back pain, and unspecified congestive heart failure present in on 04/22/2025 complaining of slowly worsening dyspnea. On ER patient noted to be hypoxic and hypercapnic requiring BiPAP support. He was started on empiric diuresis and admitted to the intensive care unit. CT chest shows stigmata of chronic aspiration. No events overnight. Continues to wear BiPAP support on and off. Critical Care Time (minutes): 0 Physical Exam 2 Vital Signs: Vital Signs: Last Vital Signs Temp 96.8 F 04/23/25 09:00 Pulse 73 04/23/25 09:00 Resp 17 04/23/25 09:00 BP 111/45 L 04/23/25 09:00 Pulse Ox 93 04/23/25 09:00 O2 Del Method BiPAP 04/23/25 09:00 O2 Flow Rate 4 04/22/25 20:00 FiO2 40 04/23/25 09:00 BMI result Body Mass Index 43.8 Const: General: no acute distress, alert and awake Eyes: Sclerae: sclerae normal EOM: EOMs intact bilaterally Neck: Neck: Yes no lymphadenopathy, Yes trachea midline and Yes supple Resp: Effort & Inspection: normal respiratory effort and no respiratory distress Auscultation: clear to auscultation bilaterally Cardio: Rate: regular rate Rhythm: regular rhythm Heart sounds: no gallops, no murmurs and no rubs GI: Palpation (GI): Soft to palpation and Other GI palpation findings present ( Nontender) Auscultation: normal bowel sounds Extrem: General: Yes no pedal edema, No clubbing and No cyanosis Objective Data Labs 04/23/25 05:20 04/23/25 05:20 Labs: Laboratory Results - last 24 hr 04/22/25 04/22/25 04/22/25 12:20 14:20 15:56 WBC RBC Hgb Hct MCV MCH MCHC RDW Plt Count MPV Immature Gran % (Auto) Neut % (Auto) Lymph % (Auto) [place] % (Auto) Eos % (Auto) Baso % (Auto) Lymph # (Auto) [place] # (Auto) Eos # (Auto) Baso # (Auto) Abs Immat Gran (auto) Absolute Neuts (auto) Absolute Nucleated RBC Nucleated RBC % (auto) VBG pH VBG pCO2 VBG pO2 VBG HCO3 VBG O2 Saturation VBG Base Excess Sodium Potassium Chloride Carbon Dioxide Anion Gap BUN Creatinine Estim Creat Clear Calc Estimated GFR POC Glucose 60 105 85 Random Glucose Calcium Phosphorus Magnesium Albumin 04/22/25 04/22/25 04/23/25 20:53 21:54 01:52 WBC RBC Hgb Hct MCV MCH MCHC RDW Plt Count MPV Immature Gran % (Auto) Neut % (Auto) Lymph % (Auto) [place] % (Auto) Eos % (Auto) Baso % (Auto) Lymph # (Auto) [place] # (Auto) Eos # (Auto) Baso # (Auto) Abs Immat Gran (auto) Absolute Neuts (auto) Absolute Nucleated RBC Nucleated RBC % (auto) VBG pH VBG pCO2 VBG pO2 VBG HCO3 VBG O2 Saturation VBG Base Excess Sodium Potassium Chloride Carbon Dioxide Anion Gap BUN Creatinine Estim Creat Clear Calc Estimated GFR POC Glucose 88 100 87 Random Glucose Calcium Phosphorus Magnesium Albumin 04/23/25 04/23/25 04/23/25 03:41 05:20 05:31 WBC 7.3 RBC 6.38 H Hgb 16.6 Hct 54.3 H MCV 85.1 MCH 26.0 L MCHC 30.6 L RDW 19.1 H Plt Count 160 MPV 10.1 Immature Gran % (Auto) 0.4 Neut % (Auto) 77.6 H Lymph % (Auto) 13.0 L [place] % (Auto) 7.7 Eos % (Auto) 1.0 Baso % (Auto) 0.3 Lymph # (Auto) 1.0 L [place] # (Auto) 0.6 Eos # (Auto) 0.1 Baso # (Auto) 0.0 Abs Immat Gran (auto) 0.03 Absolute Neuts (auto) 5.7 Absolute Nucleated RBC 0.030 H Nucleated RBC % (auto) 0.4 H VBG pH 7.24 L VBG pCO2 90 VBG pO2 46 VBG HCO3 39 H VBG O2 Saturation 67.0 VBG Base Excess 7.3 Sodium 148 H Potassium 5.4 H Chloride 105 Carbon Dioxide 34 H Anion Gap 14 BUN 18 H Creatinine 1.24 Estim Creat Clear Calc 75.3 Estimated GFR 57 POC Glucose 85 Random Glucose 82 Calcium 9.1 Phosphorus 4.9 H Magnesium 1.9 Albumin 3.6 04/23/25 04/23/25 05:51 07:42 WBC RBC Hgb Hct MCV MCH MCHC RDW Plt Count MPV Immature Gran % (Auto) Neut % (Auto) Lymph % (Auto) [place] % (Auto) Eos % (Auto) Baso % (Auto) Lymph # (Auto) [place] # (Auto) Eos # (Auto) Baso # (Auto) Abs Immat Gran (auto) Absolute Neuts (auto) Absolute Nucleated RBC Nucleated RBC % (auto) VBG pH VBG pCO2 VBG pO2 VBG HCO3 VBG O2 Saturation VBG Base Excess Sodium Potassium Chloride Carbon Dioxide Anion Gap BUN Creatinine Estim Creat Clear Calc Estimated GFR POC Glucose 86 78 Random Glucose Calcium Phosphorus Magnesium Albumin Microbiology Microbiology Results: Microbiology 04/22/25 00:27 Blood - Venous Blood Culture - Preliminary No growth after 24 hours. 04/22/25 00:16 Blood - Venous Blood Culture - Preliminary No growth after 24 hours. Progress Note: A&P Assessment and plan (1) Acute exacerbation of CHF (congestive heart failure): Status: Acute (2) Acute respiratory failure with hypoxia and hypercarbia: Status: Acute (3) Acute exacerbation of chronic obstructive pulmonary disease: Status: Acute (4) Type 2 diabetes mellitus with unspecified complications: Status: Acute Plan Assessment: 75-year-old gentleman admitted with acute hypoxic and hypercapnic respiratory failure on a background of COPD and unspecified congestive heart failure initially requiring BiPAP support. Plan: Neuro: No acute issues. Cardiac: Likely underlying congestive heart failure, improving with diuresis. 2D echocardiogram is pending. Pulmonary: Acute hypoxic and hypercapnic respiratory failure likely secondary to congestive heart failure exacerbation requiring BiPAP support, continue to titrate off as tolerated. CT chest with stigmata of chronic aspiration. Renal: No acute issues. Endo: No acute issues. Underlying diabetes mellitus. GI: No acute issues. ID: No acute issues Heme/Onc: No acute issues. Psych: No acute issues. Miscellaneous: No acute issues. Prophylaxis: Heparin Diet: Pending swallow evaluation Quality Stroke Does the patient have a stroke diagnosis?: No VTE Prior VTE?: No VTE Risk Level:: Medical - moderate - high VTE Device Contraindication: N/A - Device Ordered VTE Drug Contraindication: N/A - Med Ordered
--- NOTE | 2025-04-23 10:03 | MHC.CM.PN ---
Pt continues care in ICU: on Bipap and making clinical improvement: states pt will remain in ICU x 1 more day then transfer to the medical floor. Pt has not had medical care in the community and may need STR d/t deconditioning and new medications. Requested PT eval - STR made should pt require placement. CM to follow.
[2025-04-23 10:15] LABS: Venous Blood Gas Refer to POC result
[2025-04-23 10:16] LABS: VBG HCO3 40 mmol/L (22-26); VBG O2 % Saturation 62.0 %
[2025-04-23 12:02] LABS: Glucose, Whole Blood 90 mg/dL (60-115)
--- NOTE | 2025-04-23 14:33 | P.CDIM_ITS ---
PROVIDER RESPONSE TEXT: To clarify, the appropriate diagnosis supported by the clinical indicators: Obesity Due to excess calories QUERY TEXT: PHYSICIAN'S DOCUMENTATION REQUEST Date of Query: 04/23/2025 11:24 AM EDT Patient Name: Rangel Calderon Admit Date: 04/22/2025 Dear Tal Cantu MD, A review of the medical record indicates additional documentation may be needed. Please review below and update the documentation accordingly. Clinical Indicators: Height: 6 ft. Weight: 146.5kg BMI: 42.2 Other Clinical Notes Supporting Significance of the BMI: Nursing notes Height and Weight: Extreme obesity Class III If possible, please provide an associated diagnosis related to the abnormal BMI, such as: Obesity Due to excess calories Morbid obesity Obesity Due to Class I, II, III Other (explain) Clinically unable to determine (explain) Thank you, Hannah Montague, CCS, CDIS Use of terms such as suspected, likely, concern for, or probable (associated with a specific diagnosis that is being evaluated, monitored, or treated as if it exists) are acceptable and can be coded in the inpatient setting, when documented at the time of discharge. Please use your independent medical judgment in providing your response. THIS QUERY IS PART OF THE PERMANENT MEDICAL RECORD
--- NOTE | 2025-04-23 14:35 | HO.WOUND ---
Wound Consult: Initial 75yr old?male admitted to [facility] on 04/22/25 06:42- See progress notes and H&P for detailed history.? While on ICU rounds discussed with direct care nurse concern for bed properly working. Discussed patient limited movement due to back pain and hip discomfort chronic in nature. Recommend continue with Q2hr turns and Agility Pulsate bed with bolsters to accommodate patients body habitus. No skin injury or concerns noted by nurse but patient remains ICU level of care and high risk for skin injury development. Recommend Agility Pulsate bed with bolsters. Order placed.
--- NOTE | 2025-04-23 15:13 | PC.RT ---
Pt was removed from bipap post 3 hours. Pt is awake and coop, aware. COMMISSARY CLERK in with nurse for swallow eveluation. Pt placed on 4 lpm via n/c.
--- NOTE | 2025-04-23 16:01 | PC.NURSE ---
Agility called to order Agility Evolution? w/Pulsate Bariatric bed. Called 04/23/25 approx 15:30. This RN advised by wound RN for orders. Confirmation # [id number].
[2025-04-23 16:29] LABS: Glucose, Whole Blood 82 mg/dL (60-115)
--- NOTE | 2025-04-23 17:00 | MHC.SLORD ---
Speech Language Pathology Order Status: Attempted to see patient for eval, Patient refusing as he does not want to be sat up in bed. Patient habitually eats lying down due to back issues. Discussed plan with re: working in tandem with PT tomorrow to see if patient will cooperate with positioning. Patient cannot be assessed lying down and was so advised.
[2025-04-23 20:42] LABS: Glucose, Whole Blood 111 mg/dL (60-115)
[2025-04-24] VITALS (23 sets, daily range): BP systolic 113–146; BP diastolic 62–84; PULSE 70–81; RESP 12–26; TEMP 36.1–36.9; O2SAT 86–94; BMI 41.3
[2025-04-24 04:56] LABS: VBG HCO3 34 mmol/L (22-26); VBG O2 % Saturation 59.0 %
[2025-04-24 04:59] LABS: Venous Blood Gas Refer to POC result
[2025-04-24 05:14] LABS: MANUAL DIFF FLAG NO
[2025-04-24 05:17] LABS: Hematocrit 57.1 % (42.0-52.0); Hemoglobin 16.9 g/dl (14.0-18.0); Imm Gran Abs Auto 0.03 X10*3/uL (0.00-0.03); Imm Gran Pct Auto 0.4 % (0.0-0.4); Lymphocytes Absolute Auto 0.8 X10*3/uL (1.2-4.9); Mean Corpuscular HGB Conc 29.6 g/dl (31.0-36.0); Mean Corpuscular Hemoglobin 25.8 pg (27.0-33.0); Mean Corpuscular Volume 87.2 fL (80.0-98.0); NRBC Abs Auto 0.030 X10*3/uL (0.0-0.012); NRBC Pct Auto 0.4 /100WBC (0.0-0.2); Platelet Count 174 X10*3/uL (160-400); Red Blood Count 6.55 X10*6/uL (4.60-5.80); White Blood Count 7.6 X10*3/uL (4.8-10.8)
[2025-04-24 05:40] LABS: Albumin Level 3.7 g/dL (3.5-5.0); Anion Gap 15 (12-20); Blood Urea Nitrogen 19 mg/dL (9-16); Calcium 9.4 mg/dL (8.4-10.2); Carbon Dioxide 33 mmol/L (22-29); Chloride 105 mmol/L (96-108); Creatinine Clr Calc Pharmacy 72.4; Estimated Glomerular Filt Rate 56; Magnesium 2.0 mg/dL (1.6-2.6); Potassium 5.3 mmol/L (3.3-5.1); Sodium 148 mmol/L (135-145)
[2025-04-24 07:37] LABS: Glucose, Whole Blood 118 mg/dL (60-115)
[2025-04-24] MEDS: 0.9 % Sodium Chloride Flush 3 ML SYRINGE IVFLUSH ×3 (08:35→21:35)
[2025-04-24] MEDS: Lidocaine 4 % Patch ADH..PATCH 1 PATCH TRANSDERMA (08:35)
[2025-04-24 11:23] LABS: Glucose, Whole Blood 108 mg/dL (60-115)
--- NOTE | 2025-04-24 11:26 | P.PNCC_ITS ---
Subjective Subjective Date of Service: 04/24/25 Interval History: 75-year-old gentleman with underlying hypertension, diabetes mellitus, COPD, chronic back pain, and unspecified congestive heart failure present in on 04/22/2025 complaining of slowly worsening dyspnea. On ER patient noted to be hypoxic and hypercapnic requiring BiPAP support. He was started on empiric diuresis and admitted to the intensive care unit. CT chest shows stigmata of chronic aspiration. No events overnight. Titrated off daytime BiPAP support. Critical Care Time (minutes): 0 Physical Exam 2 Vital Signs: Vital Signs: Last Vital Signs Temp 97.3 F 04/24/25 04:00 Pulse 79 04/24/25 11:00 Resp 17 04/24/25 11:00 BP 133/71 04/24/25 11:00 Pulse Ox 88 L 04/24/25 11:00 O2 Del Method Nasal Cannula 04/24/25 11:00 O2 Flow Rate 2 04/24/25 11:00 FiO2 40 04/24/25 09:00 BMI result Body Mass Index 41.3 Const: General: no acute distress, alert and awake Nutritional Appearance: obese Eyes: Sclerae: sclerae normal EOM: EOMs intact bilaterally Neck: Neck: Yes no lymphadenopathy, Yes trachea midline and Yes supple Resp: Effort & Inspection: normal respiratory effort and no respiratory distress Auscultation: clear to auscultation bilaterally Cardio: Rate: regular rate Rhythm: regular rhythm Heart sounds: no gallops, no murmurs and no rubs GI: Palpation (GI): Soft to palpation and Other GI palpation findings present ( Nontender) Auscultation: normal bowel sounds Extrem: General: Yes no pedal edema, No clubbing and No cyanosis Objective Data Labs 04/24/25 04:41 04/24/25 04:41 Labs: Laboratory Results - last 24 hr 04/23/25 04/23/25 04/23/25 11:59 16:26 20:36 WBC RBC Hgb Hct MCV MCH MCHC RDW Plt Count MPV Immature Gran % (Auto) Neut % (Auto) Lymph % (Auto) [place] % (Auto) Eos % (Auto) Baso % (Auto) Lymph # (Auto) [place] # (Auto) Eos # (Auto) Baso # (Auto) Abs Immat Gran (auto) Absolute Neuts (auto) Absolute Nucleated RBC Nucleated RBC % (auto) VBG pH VBG pCO2 VBG pO2 VBG HCO3 VBG O2 Saturation VBG Base Excess Sodium Potassium Chloride Carbon Dioxide Anion Gap BUN Creatinine Estim Creat Clear Calc Estimated GFR POC Glucose 90 82 111 Random Glucose Calcium Phosphorus Magnesium Albumin 04/24/25 04/24/25 04/24/25 04:41 04:50 07:34 WBC 7.6 RBC 6.55 H Hgb 16.9 Hct 57.1 H MCV 87.2 MCH 25.8 L MCHC 29.6 L RDW 19.7 H Plt Count 174 MPV 11.1 Immature Gran % (Auto) 0.4 Neut % (Auto) 81.1 H Lymph % (Auto) 10.3 L [place] % (Auto) 7.6 Eos % (Auto) 0.3 Baso % (Auto) 0.3 Lymph # (Auto) 0.8 L [place] # (Auto) 0.6 Eos # (Auto) 0.0 Baso # (Auto) 0.0 Abs Immat Gran (auto) 0.03 Absolute Neuts (auto) 6.2 Absolute Nucleated RBC 0.030 H Nucleated RBC % (auto) 0.4 H VBG pH 7.28 L VBG pCO2 72 VBG pO2 47 VBG HCO3 34 H VBG O2 Saturation 59.0 VBG Base Excess 4.2 Sodium 148 H Potassium 5.3 H Chloride 105 Carbon Dioxide 33 H Anion Gap 15 BUN 19 H Creatinine 1.25 Estim Creat Clear Calc 72.4 Estimated GFR 56 POC Glucose 118 H Random Glucose 109 Calcium 9.4 Phosphorus 4.1 Magnesium 2.0 Albumin 3.7 04/24/25 11:12 WBC RBC Hgb Hct MCV MCH MCHC RDW Plt Count MPV Immature Gran % (Auto) Neut % (Auto) Lymph % (Auto) [place] % (Auto) Eos % (Auto) Baso % (Auto) Lymph # (Auto) [place] # (Auto) Eos # (Auto) Baso # (Auto) Abs Immat Gran (auto) Absolute Neuts (auto) Absolute Nucleated RBC Nucleated RBC % (auto) VBG pH VBG pCO2 VBG pO2 VBG HCO3 VBG O2 Saturation VBG Base Excess Sodium Potassium Chloride Carbon Dioxide Anion Gap BUN Creatinine Estim Creat Clear Calc Estimated GFR POC Glucose 108 Random Glucose Calcium Phosphorus Magnesium Albumin Microbiology Microbiology Results: Microbiology 04/22/25 00:27 Blood - Venous Blood Culture - Preliminary No growth after 48 hours. 04/22/25 00:16 Blood - Venous Blood Culture - Preliminary No growth after 48 hours. Progress Note: A&P Assessment and plan (1) Type 2 diabetes mellitus with unspecified complications: Status: Acute (2) Acute respiratory failure with hypoxia and hypercarbia: Status: Acute (3) Obesity hypoventilation syndrome: Status: Acute Plan Assessment: 75-year-old gentleman admitted with acute hypoxic and hypercapnic respiratory failure on a background of COPD and unspecified congestive heart failure initially requiring BiPAP support. Plan: Neuro: No acute issues. Cardiac: 2D echocardiogram reviewed, no evidence of underlying congestive heart failure. Pulmonary: Acute hypoxic and hypercapnic respiratory failure on a background of obesity hyperventilation syndrome requiring BiPAP support, titrated off daytime BiPAP, continue nocturnal BiPAP. CT chest with stigmata of chronic aspiration. Renal: No acute issues. Endo: No acute issues. Underlying diabetes mellitus. GI: No acute issues. ID: No acute issues Heme/Onc: No acute issues. Psych: No acute issues. Miscellaneous: No acute issues. Prophylaxis: Heparin Diet: Pending swallow evaluation Quality Stroke Does the patient have a stroke diagnosis?: No VTE Prior VTE?: No VTE Risk Level:: Medical - moderate - high VTE Device Contraindication: N/A - Device Ordered VTE Drug Contraindication: N/A - Med Ordered
[2025-04-24 12:10] LABS: VBG HCO3 36 mmol/L (22-26); VBG O2 % Saturation 45.0 %
[2025-04-24 12:17] LABS: Venous Blood Gas Refer to POC result
--- NOTE | 2025-04-24 12:32 | PM.EVENT ---
Event Note Date of Service: 04/25/25 Event Note: Patient seen and examined , came from ICU Shortness of breaths seems somewhat improving Physical exam and assessment and plan as per ICU note. Time Spent With Patient Time: Total time managing care of this patient today ____ minutes.
--- NOTE | 2025-04-24 13:40 | MHC.SL.SWA ---
Speech Pathologist Impression: Risk of Aspiration, Oral Phase Dysphagia Risk of Aspiration Due to: Poor positioning, compromised respiratory system Dysphasia Diet Status: Start on NDD2/THIN Liquid Consistency and Strategies for Safe Swallow: Liquid Intake Recommendation: Thin Solid Food Consistency: Dietary Recommendations: Grnd/Mech Altered (NDD2) Additional Modifications to Solid Foods: Patient presents with mild oral phase dysphagia d/t edentulous status, aspiration risk associated with poor positioning due to back pain and compromised respiratory system/COPD. At home patient was eating while lying down turned to his side. Chest CT showing near complete opacification of the right lower lobe and partial opacification of the right middle lobe, consistent with atelectasis or pneumonia. Small right pleural effusion. Patient is now in a bariatric bed and tolerated elevation to 70 degrees very gradually. Patient was able to feed himself, displayed no overt s/s of aspiration, O2 sat remained stable throughout trials. Recommend start on GROUND/MECH ALTERED (NDD2) diet for ease of mastication and THIN liquids (via teaspoon or INDIVIDUAL straw sips), pills CRUSHED in PUREE. Patient MUST BE POSITIONED UPRIGHT AT LEAST 70-90 DEGREES. Nursing staff/SEARCH MARKETING COORDINATOR may need to work w/ PT on goal of increasing patient's ability to sit up for meals. He does better when the bed is elevated in increments. Direct supervision for cuing and assist patient at meals by handing items/utensils, ensuring containers are open and accessible, provide assistance w/ feeding as needed. Oral Medication Intake: Crushed with Puree Please contact the pharmacy regarding appropriate crushable or liquid drug formulations that are available whenever modified delivery is recommended. Supervision While Eating and Drinking for Safe Swallow: Direct Supervision (1:1) Recommendation for Speech: Inpatient Speech Therapy Frequency/Duration: M-F Date Range for Service Req: Timeline to reassess: Grain Combiner Clinican/Clinical Fellow: No Supervisory Statement: I have reviewed and agree with the student/clinical fellow's documentation: N/A Speech Language Pathologist: Noreen Brantley M.A., CCC-SEARCH MARKETING COORDINATOR
--- NOTE | 2025-04-24 14:22 | MHC.CM.PN ---
PT HAS BEEN DOWNGRADED TO MED-TELE UNIT FROM ICU. CM WILL CONTINUE TO FOLLOW FOR DC PLAN/NEEDS.
[2025-04-24 16:58] LABS: Glucose, Whole Blood 159 mg/dL (60-115)
[2025-04-24 21:07] LABS: Glucose, Whole Blood 146 mg/dL (60-115)
[2025-04-25] VITALS (9 sets, daily range): BP systolic 137–169; BP diastolic 61–78; PULSE 68–76; RESP 18–21; TEMP 36.4–36.7; O2SAT 92–95; BMI 41.3
[2025-04-25 06:57] LABS: Glucose, Whole Blood 114 mg/dL (60-115)
[2025-04-25 07:05] LABS: MANUAL DIFF FLAG NO
[2025-04-25 07:18] LABS: Venous Blood Gas Refer to POC result
[2025-04-25 07:18] LABS: VBG HCO3 34 mmol/L (22-26); VBG O2 % Saturation 61.0 %
[2025-04-25 07:20] LABS: Hematocrit 54.3 % (42.0-52.0); Hemoglobin 16.5 g/dl (14.0-18.0); Imm Gran Abs Auto 0.04 X10*3/uL (0.00-0.03); Imm Gran Pct Auto 0.5 % (0.0-0.4); Lymphocytes Absolute Auto 0.7 X10*3/uL (1.2-4.9); Mean Corpuscular HGB Conc 30.4 g/dl (31.0-36.0); Mean Corpuscular Hemoglobin 26.0 pg (27.0-33.0); Mean Corpuscular Volume 85.5 fL (80.0-98.0); NRBC Abs Auto 0.020 X10*3/uL (0.0-0.012); NRBC Pct Auto 0.3 /100WBC (0.0-0.2); Platelet Count 166 X10*3/uL (160-400); Red Blood Count 6.35 X10*6/uL (4.60-5.80); White Blood Count 7.4 X10*3/uL (4.8-10.8)
[2025-04-25 07:29] LABS: Albumin Level 3.6 g/dL (3.5-5.0); Anion Gap 11 (12-20); Blood Urea Nitrogen 19 mg/dL (9-16); Calcium 9.0 mg/dL (8.4-10.2); Carbon Dioxide 31 mmol/L (22-29); Chloride 107 mmol/L (96-108); Creatinine Clr Calc Pharmacy 73.6; Estimated Glomerular Filt Rate 57; Magnesium 2.0 mg/dL (1.6-2.6); Potassium 3.8 mmol/L (3.3-5.1); Sodium 145 mmol/L (135-145)
[2025-04-25] MEDS: Lidocaine 4 % Patch ADH..PATCH 1 PATCH TRANSDERMA (09:15)
[2025-04-25] MEDS: 0.9 % Sodium Chloride Flush 3 ML SYRINGE IVFLUSH ×2 (09:26→16:34)
[2025-04-25 10:55] LABS: Glucose, Whole Blood 119 mg/dL (60-115)
--- NOTE | 2025-04-25 12:29 | HO.PM.IMPN ---
Subjective Subjective Date of Service: 04/25/25 Interval History: copd , chf unsepcified. Review of Systems sob somewhat improving ambulation limited passing bm's Physical Exam Exam: Exam: Appearance:no acute distress, alert and awake cvs: rrr, [id number] . res: air netry diminshed right>left abd: no rebound or guarding ,nt, bs present. ext pulses present , no cyanosis. neuro: limited ,moves allext Vital Signs: Vital Signs: Last Vital Signs Temp 98.0 F 04/25/25 10:53 Pulse 73 04/25/25 10:53 Resp 20 04/25/25 10:53 BP 142/78 H 04/25/25 10:53 Pulse Ox 93 04/25/25 10:53 O2 Del Method Nasal Cannula 04/25/25 10:53 O2 Flow Rate 2 04/25/25 10:53 FiO2 30 04/25/25 04:00 BMI result Body Mass Index 41.3 Objective Data Active Medications Acetaminophen (Acetaminophen 325 Mg Tablet) 650 mg PO Q6H PRN PRN Reason: Fever Dextrose (Dextrose 50 % 25 Gm/50 Ml Syringe) 25 gm IVPUSH Q15M PRN; Protocol PRN Reason: per Hypoglycemia Standing Ord. Heparin Sodium (Porcine) (Heparin Sodium,Porcine 5,000 Unit/Ml Vial) 5,000 unit SUBCUT Q8H [facility] Last Admin: 04/25/25 09:14 Dose: 5,000 unit Documented By: MELISSA Insulin Human Lispro (Insulin Lispro 100 Unit/Ml 3 Ml Vial) 0 unit SUBCUT QIDACHS [facility]; Protocol Last Admin: 04/25/25 11:04 Dose: Not Given Documented By: MELISSA Non-Admin Reason: No Insulin Coverage Lactulose (Lactulose 20 Gm/30 Ml Solution) 30 gm PO BID [facility] Last Admin: 04/25/25 09:06 Dose: 30 gm Documented By: MELISSA Lidocaine (Lidocaine 4 % Patch Adh..Patch) 1 patch TRANSDERMA DAILY [facility]; Protocol Last Admin: 04/25/25 09:15 Dose: 1 patch Documented By: MELISSA Nystatin (Nystatin Powder 15 Gm Bottle) 1 appl TOPICAL BID [facility]; Protocol Last Admin: 04/24/25 21:43 Dose: 1 appl Documented By: AMEARTPaulino Sodium Chloride (0.9 % Sodium Chloride Flush 3 Ml Syringe) 3 ml IVFLUSH QSHIFT [facility] Last Admin: 04/25/25 09:26 Dose: 3 ml Documented By: MELISSA Labs 04/25/25 07:00 04/25/25 07:00 Labs: Laboratory Results - last 24 hr 04/24/25 04/24/25 04/25/25 16:55 20:37 06:50 MCV MCH MCHC RDW Plt Count MPV Immature Gran % (Auto) Neut % (Auto) Lymph % (Auto) [place] % (Auto) Eos % (Auto) Baso % (Auto) Lymph # (Auto) [place] # (Auto) Eos # (Auto) Baso # (Auto) Abs Immat Gran (auto) Absolute Neuts (auto) Absolute Nucleated RBC Nucleated RBC % (auto) VBG pH VBG pCO2 VBG pO2 VBG HCO3 VBG O2 Saturation VBG Base Excess Anion Gap Estim Creat Clear Calc Estimated GFR POC Glucose 159 H 146 H 114 Random Glucose Calcium Phosphorus Magnesium Albumin 04/25/25 04/25/25 04/25/25 07:00 07:10 10:51 MCV 85.5 MCH 26.0 L MCHC 30.4 L RDW 19.4 H Plt Count 166 MPV 10.7 Immature Gran % (Auto) 0.5 H Neut % (Auto) 81.7 H Lymph % (Auto) 9.8 L [place] % (Auto) 7.6 Eos % (Auto) 0.3 Baso % (Auto) 0.1 Lymph # (Auto) 0.7 L [place] # (Auto) 0.6 Eos # (Auto) 0.0 Baso # (Auto) 0.0 Abs Immat Gran (auto) 0.04 H Absolute Neuts (auto) 6.0 Absolute Nucleated RBC 0.020 H Nucleated RBC % (auto) 0.3 H VBG pH 7.28 L VBG pCO2 70 VBG pO2 41 VBG HCO3 34 H VBG O2 Saturation 61.0 VBG Base Excess 4.3 Anion Gap 11 L Estim Creat Clear Calc 73.6 Estimated GFR 57 POC Glucose 119 H Random Glucose 116 H Calcium 9.0 Phosphorus 3.7 Magnesium 2.0 Albumin 3.6 Assessment and Plan (1) Acute exacerbation of CHF (congestive heart failure): Status: Acute (2) Acute respiratory failure with hypoxia and hypercarbia: Status: Acute Plan 75-year-old gentleman with underlying hypertension, diabetes mellitus, COPD, chronic back pain, and unspecified congestive heart failure present in on 04/22/2025 complaining of slowly worsening dyspnea. On ER patient noted to be hypoxic and hypercapnic requiring BiPAP support. He was started on empiric diuresis and admitted to the intensive care unit. CT chest shows stigmata of chronic aspiration. acute hypoxic and hypercapnic failuer sec Chf (HfpEf) exacerbation: Monitor I&O:negative 6 L Shortness of breaths improving Plan-will consider switching to po diuretics,taper oxygen . copd/?atelactasis: stable added nebs , incentive spirometry, chest physiotherapy Diabetes: added hba1c continue insulin Morbid obesity: Encouraged to cutdown calories/lose weight. generalised weak/limited mobility as per icu info: mostly on the chair ,eats leaning on one side : added PT eval seen by SLOT AMBASSADOR: suggested NDD2 diet. DVT prophylaxis subQHeparin ongoing need for stay:acute hypoxic and hypercapnic failuer sec Chf (HfpEf) exacerbation-taper oxygen , moniter renal function/electrolytes . Call placed to update the family(they are driving right now unable to talk), we will discuss when they come up. Quality Stroke Does the patient have a stroke diagnosis?: No VTE Prior VTE?: No VTE Risk Level:: Medical - moderate - high VTE Device Contraindication: N/A - Device Ordered VTE Drug Contraindication: N/A - Med Ordered
[2025-04-25 13:11] LABS: Hemoglobin A1C 201.0969 umol/L; Total Hemoglobin (HGBA1C) 4265.0940 umol/L
[2025-04-25] MEDS: Albuterol/Iprat 2.5/0.5MG 3 ML AMPUL.NEB INHALE ×2 (15:34→20:09)
[2025-04-25 16:31] LABS: Glucose, Whole Blood 132 mg/dL (60-115)
--- NOTE | 2025-04-25 18:21 | PC.NURSE ---
patient is resting quietly has no complaints at this time
[2025-04-25 20:44] LABS: Glucose, Whole Blood 144 mg/dL (60-115)
[2025-04-26] VITALS (10 sets, daily range): BP systolic 111–138; BP diastolic 55–73; PULSE 60–74; RESP 16–20; TEMP 36–36.4; O2SAT 92–97; BMI 41.2
[2025-04-26] MEDS: 0.9 % Sodium Chloride Flush 3 ML SYRINGE IVFLUSH ×3 (00:18→16:46)
--- NOTE | 2025-04-26 06:36 | PC.NURSE ---
Assumed care of pt at 1900. Pt non compliant with bi pap at times throughout the night. Pt hypoxic at times while on NC while sleeping. This RN encouraged bi-pap use. Pt educated on importance of wearing bi-pap when sleeping. LUCIO. All safety measures in place. Able to make needs known. Call mayo within reach.
[2025-04-26 06:59] LABS: Glucose, Whole Blood 137 mg/dL (60-115)
[2025-04-26] MEDS: Albuterol/Iprat 2.5/0.5MG 3 ML AMPUL.NEB INHALE ×4 (08:20→20:47)
[2025-04-26] MEDS: Lidocaine 4 % Patch ADH..PATCH 1 PATCH TRANSDERMA (08:45)
[2025-04-26 10:57] LABS: Glucose, Whole Blood 129 mg/dL (60-115)
--- NOTE | 2025-04-26 11:17 | HO.PM.IMPN ---
Subjective Subjective Date of Service: 04/26/25 Interval History: copd /chf Review of Systems sob improving keeping removing [place] oxygen inbetween Review of Systems: Yes all other systems are reviewed and are negative Physical Exam Exam: Exam: Appearance:no acute distress, alert and awake near baseline per family. cvs: rrr, [id number] . res: air netry diminshed right>left abd: no rebound or guarding ,nt, bs present. ext pulses present , no cyanosis. neuro: limited ,moves allext Vital Signs: Vital Signs: Last Vital Signs Temp 97.1 F 04/26/25 10:55 Pulse 71 04/26/25 10:55 Resp 20 04/26/25 10:55 BP 125/68 04/26/25 10:55 Pulse Ox 97 04/26/25 10:55 O2 Del Method Nasal Cannula 04/26/25 10:55 O2 Flow Rate 3 04/26/25 10:55 FiO2 30 04/26/25 04:00 BMI result Body Mass Index 41.2 Objective Data Active Medications Acetaminophen (Acetaminophen 325 Mg Tablet) 975 mg PO Q6H PRN PRN Reason: Fever Albuterol/Ipratropium (Albuterol/Iprat 2.5/0.5mg 3 Ml Ampul.Neb) 3 ml INHALE RQ4H WHILE AWAKE [facility] Last Admin: 04/26/25 08:20 Dose: 3 ml Documented By: KOFI Dextrose (Dextrose 50 % 25 Gm/50 Ml Syringe) 25 gm IVPUSH Q15M PRN; Protocol PRN Reason: per Hypoglycemia Standing Ord. Furosemide (Furosemide 20 Mg Tablet) 20 mg PO DAILY [facility]; Protocol Last Admin: 04/26/25 08:44 Dose: 20 mg Documented By: MARTINA Heparin Sodium (Porcine) (Heparin Sodium,Porcine 5,000 Unit/Ml Vial) 5,000 unit SUBCUT Q8H [facility] Last Admin: 04/26/25 08:45 Dose: 5,000 unit Documented By: MARTINA Insulin Human Lispro (Insulin Lispro 100 Unit/Ml 3 Ml Vial) 0 unit SUBCUT QIDACHS [facility]; Protocol Last Admin: 04/26/25 11:02 Dose: Not Given Documented By: MARTINA Non-Admin Reason: No Insulin Coverage Lactulose (Lactulose 20 Gm/30 Ml Solution) 30 gm PO BID [facility] Last Admin: 04/26/25 08:45 Dose: Not Given Documented By: MARTINA Non-Admin Reason: Patient Refused Lidocaine (Lidocaine 4 % Patch Adh..Patch) 1 patch TRANSDERMA DAILY [facility]; Protocol Last Admin: 04/26/25 08:45 Dose: 1 patch Documented By: MARTINA Lisinopril (Lisinopril 2.5 Mg Tablet) 2.5 mg PO DAILY [facility]; Protocol Last Admin: 04/26/25 08:44 Dose: 2.5 mg Documented By: MARTINA Nystatin (Nystatin Powder 15 Gm Bottle) 1 appl TOPICAL BID [facility]; Protocol Last Admin: 04/26/25 08:46 Dose: 1 appl Documented By: MARTINA Sodium Chloride (0.9 % Sodium Chloride Flush 3 Ml Syringe) 3 ml IVFLUSH QSHIFT [facility] Last Admin: 04/26/25 08:45 Dose: 3 ml Documented By: MARTINA Trazodone HCl (Trazodone Hcl 25 Mg Halftab) 25 mg PO TID PRN PRN Reason: Pain, Severe (Pain Scale 7-10) Labs 04/25/25 07:00 04/25/25 07:00 Labs: Laboratory Results - last 24 hr 04/25/25 04/25/25 04/25/25 07:00 16:28 20:35 POC Glucose 132 H 144 H Estimat Average Glucose 140 Hemoglobin A1c % 6.5 H 04/26/25 04/26/25 06:49 10:47 POC Glucose 137 H 129 H Estimat Average Glucose Hemoglobin A1c % Assessment and Plan (1) Acute exacerbation of CHF (congestive heart failure): Status: Acute (2) Acute respiratory failure with hypoxia and hypercarbia: Status: Acute Plan 75-year-old gentleman with underlying hypertension, diabetes mellitus, COPD, chronic back pain, and unspecified congestive heart failure present in on 04/22/2025 complaining of slowly worsening dyspnea. On ER patient noted to be hypoxic and hypercapnic requiring BiPAP support. He was started on empiric diuresis and admitted to the intensive care unit. CT chest shows stigmata of chronic aspiration. acute hypoxic and hypercapnic failuer sec Chf (HfpEf) exacerbation: Monitor I&O:negative 7.2 L Shortness of breaths improving Plan-will consider switching to po diuretics,taper oxygen . copd/?atelactasis: stable added nebs , incentive spirometry, chest physiotherapy Diabetes: added hba1c continue insulin Morbid obesity: Encouraged to cutdown calories/lose weight. generalised weak/limited mobility as per icu info: mostly on the chair ,eats leaning on one side : added PT eval seen by ICE SKATER: suggested NDD2 diet. DVT prophylaxis subQHeparin ongoing need for stay:acute hypoxic and hypercapnic failuer sec Chf (HfpEf) exacerbation-taper oxygen , moniter renal function/electrolytes . family updated-it seems like patient can not even sit at baseline, eats lying down and turning his back to the 1 side, at home was passing stool in his shower because can not sit on the toilet, functional baseline is poor. Quality Stroke Does the patient have a stroke diagnosis?: No VTE Prior VTE?: No VTE Risk Level:: Medical - moderate - high VTE Device Contraindication: N/A - Device Ordered VTE Drug Contraindication: N/A - Med Ordered
[2025-04-26 16:23] LABS: Glucose, Whole Blood 122 mg/dL (60-115)
[2025-04-26 20:36] LABS: Glucose, Whole Blood 131 mg/dL (60-115)
[2025-04-27] VITALS (12 sets, daily range): BP systolic 109–150; BP diastolic 58–75; PULSE 70–82; RESP 18–21; TEMP 36.1–36.8; O2SAT 92–97
[2025-04-27 07:14] LABS: Glucose, Whole Blood 116 mg/dL (60-115)
[2025-04-27] MEDS: Albuterol/Iprat 2.5/0.5MG 3 ML AMPUL.NEB INHALE ×4 (07:46→18:59)
[2025-04-27 09:29] LABS: Anion Gap 10 (12-20); Blood Urea Nitrogen 16 mg/dL (9-16); Calcium 8.8 mg/dL (8.4-10.2); Carbon Dioxide 31 mmol/L (22-29); Chloride 107 mmol/L (96-108); Creatinine Clr Calc Pharmacy 87.7; Estimated Glomerular Filt Rate > 60; Potassium 3.9 mmol/L (3.3-5.1); Sodium 144 mmol/L (135-145)
[2025-04-27] MEDS: 0.9 % Sodium Chloride Flush 3 ML SYRINGE IVFLUSH ×4 (09:34→22:18)
[2025-04-27] MEDS: Lidocaine 4 % Patch ADH..PATCH 1 PATCH TRANSDERMA (09:35)
[2025-04-27 12:11] LABS: Glucose, Whole Blood 126 mg/dL (60-115)
--- NOTE | 2025-04-27 13:52 | P.PNIM_ITS ---
Subjective Subjective Date of Service: 04/27/25 Interval History: copd /chf Review of Systems sob improving Review of Systems: Yes all other systems are reviewed and are negative Physical Exam 2 Exam: Exam: Appearance:no acute distress, alert and awake near baseline per family. cvs: rrr, [id number] . res: air netry diminshed right>left abd: no rebound or guarding ,nt, bs present. ext pulses present , no cyanosis. neuro: limited ,moves allext Vital Signs: Vital Signs: Last Vital Signs Temp 98.0 F 04/27/25 12:00 Pulse 73 04/27/25 12:17 Resp 20 04/27/25 12:00 BP 126/64 04/27/25 12:00 Pulse Ox 93 04/27/25 12:00 O2 Del Method Nasal Cannula 04/27/25 12:00 O2 Flow Rate 3 04/27/25 12:00 FiO2 30 04/27/25 03:23 BMI result Body Mass Index 41.2 Objective Data Active Medications Acetaminophen (Acetaminophen 325 Mg Tablet) 975 mg PO Q6H PRN PRN Reason: Fever Albuterol/Ipratropium (Albuterol/Iprat 2.5/0.5mg 3 Ml Ampul.Neb) 3 ml INHALE RQ4H WHILE AWAKE [facility] Last Admin: 04/27/25 11:20 Dose: 3 ml Documented By: JENNIFER Dextrose (Dextrose 50 % 25 Gm/50 Ml Syringe) 25 gm IVPUSH Q15M PRN; Protocol PRN Reason: per Hypoglycemia Standing Ord. Furosemide (Furosemide 20 Mg Tablet) 20 mg PO DAILY [facility]; Protocol Last Admin: 04/27/25 09:34 Dose: 20 mg Documented By: MARTINA Heparin Sodium (Porcine) (Heparin Sodium,Porcine 5,000 Unit/Ml Vial) 5,000 unit SUBCUT Q8H [facility] Last Admin: 04/27/25 09:34 Dose: 5,000 unit Documented By: MARTINA Insulin Human Lispro (Insulin Lispro 100 Unit/Ml 3 Ml Vial) 0 unit SUBCUT QIDACHS [facility]; Protocol Last Admin: 04/27/25 11:58 Dose: Not Given Documented By: MARTINA Non-Admin Reason: No Insulin Coverage Lactulose (Lactulose 20 Gm/30 Ml Solution) 30 gm PO BID [facility] Last Admin: 04/27/25 09:34 Dose: Not Given Documented By: MARTINA Non-Admin Reason: Patient Refused Lidocaine (Lidocaine 4 % Patch Adh..Patch) 1 patch TRANSDERMA DAILY [facility]; Protocol Last Admin: 04/27/25 09:35 Dose: 1 patch Documented By: MARTINA Lisinopril (Lisinopril 2.5 Mg Tablet) 2.5 mg PO DAILY [facility]; Protocol Last Admin: 04/27/25 09:33 Dose: 2.5 mg Documented By: MARTINA Nystatin (Nystatin Powder 15 Gm Bottle) 1 appl TOPICAL BID [facility]; Protocol Last Admin: 04/27/25 09:34 Dose: 1 appl Documented By: MARTINA Sodium Chloride (0.9 % Sodium Chloride Flush 3 Ml Syringe) 3 ml IVFLUSH QSHIFT [facility] Last Admin: 04/27/25 09:34 Dose: 3 ml Documented By: MARTINA Trazodone HCl (Trazodone Hcl 25 Mg Halftab) 25 mg PO TID PRN PRN Reason: Pain, Severe (Pain Scale 7-10) Labs 04/25/25 07:00 04/27/25 08:44 Labs: Laboratory Results - last 24 hr 04/26/25 04/26/25 04/27/25 16:19 20:32 07:05 Hold Purple Top Anion Gap Estim Creat Clear Calc Estimated GFR POC Glucose 122 H 131 H 116 H Random Glucose Calcium 04/27/25 04/27/25 08:44 11:31 Hold Purple Top SEE NOTE Anion Gap 10 L Estim Creat Clear Calc 87.7 Estimated GFR > 60 POC Glucose 126 H Random Glucose 163 H Calcium 8.8 Microbiology Microbiology Results: Microbiology 04/22/25 00:27 Blood Culture - Final Blood - Venous No growth after 5 days. 04/22/25 00:16 Blood Culture - Final Blood - Venous No growth after 5 days. Assessment and Plan (1) Acute exacerbation of CHF (congestive heart failure): Status: Acute (2) Acute respiratory failure with hypoxia and hypercarbia: Status: Acute Plan 75-year-old gentleman with underlying hypertension, diabetes mellitus, COPD, chronic back pain, and unspecified congestive heart failure present in on 04/22/2025 complaining of slowly worsening dyspnea. On ER patient noted to be hypoxic and hypercapnic requiring BiPAP support. He was started on empiric diuresis and admitted to the intensive care unit. CT chest shows stigmata of chronic aspiration. acute hypoxic and hypercapnic failuer sec Chf (HfpEf) exacerbation &obesity hyperventilation syndrome requiring BiPAP support, titrated off daytime BiPAP, continue nocturnal BiPAP. CT chest with stigmata of chronic aspiration.: Monitor I&O:negative 8 L Shortness of breaths improving Plan-will consider switching to po diuretics,taper oxygen .sleep study overnight added copd/?atelactasis: stable continue nebs , incentive spirometry, chest physiotherapy Diabetes: hba1c 6.5 moniter fs and sliding scale insulin. Morbid obesity: Encouraged to cutdown calories/lose weight. generalised weak/limited mobility as per icu info: mostly on the chair ,eats leaning on one side : seen by STRIP PICKER: suggested NDD2 diet. DVT prophylaxis subQHeparin ongoing need for stay:acute hypoxic and hypercapnic failuer sec Chf (HfpEf) exacerbation-taper oxygen , moniter renal function/electrolytes . family updated-it seems like patient can not even sit at baseline, eats lying down and turning his back to the 1 side, at home was passing stool in his shower because can not sit on the toilet, functional baseline is poor. Quality Stroke Does the patient have a stroke diagnosis?: No VTE Prior VTE?: No VTE Risk Level:: Medical - moderate - high VTE Device Contraindication: N/A - Device Ordered VTE Drug Contraindication: N/A - Med Ordered
--- NOTE | 2025-04-27 15:22 | MHC.SLORD ---
Speech Language Pathology Order Status: Pt not seen 04/27, tolerating diet as ordered per RN report. SOAKER HELPER to followup as indicated.
--- NOTE | 2025-04-27 16:03 | MHC.CM.PN ---
EMR REVIEWED, GENESIS RECIVED CALL FROM PT'S NAUN REPORTING PT CAN'T RETURN TO 4TH FL APT HE HAS BEEN STIFF AND UNABLE TO BEND FOR 2 YRS AND CAN'T GET INTO A WC, PT IS MAINLY BEDBOUND, NAUN REPORTS PT'S ELEMENTARY SCHOOL DIRECTOR MICHELLE BAUTSITA [phone] REPORTED HE CAN STAY W/HER WHILE THEY MOVE HIS APT AND HAS STARTED PROCESS W/APT. CM CONTACTED MICHELLE (JOHNIE) AT [phone] AND SHE REPORTS SHE IS ABLE TO TAKE PT IN SOON TOMORROW 04/28, SHE MAY NOT BE HOME IF PT DC'S AFTER 2:30PM HOWEVER HER SON JAXSON ASTORGA (SAME# MICHELLE) WHO IS ANOTHER ELEMENTARY SCHOOL DIRECTOR FOR PT AND HER DAD WILL BE HOME AND ACCEPT PT. PT'S WILL BE DISCHARGING TO [address] [place] [id number] AND WILL NEED [facility] FOR TRANSPORT. RESPIRATORY WILL DO OVERNIGHT SLEEP STUDY PT HAS BEEN ON BIPAP WHILE INPT. COMFORT PLUS FOLLOWING.
[2025-04-27 16:23] LABS: Glucose, Whole Blood 171 mg/dL (60-115)
[2025-04-27 20:44] LABS: Glucose, Whole Blood 128 mg/dL (60-115)
--- NOTE | 2025-04-27 23:51 | PC.RT ---
Started pt Sleep Study at 2350; pt failed RA trial; placed on 2L Oxymask. RN aware
[2025-04-28] VITALS (10 sets, daily range): BP systolic 121–150; BP diastolic 57–78; PULSE 63–87; RESP 18–20; TEMP 36.1–36.9; O2SAT 92–96
[2025-04-28 07:01] LABS: Glucose, Whole Blood 117 mg/dL (60-115)
[2025-04-28] MEDS: Lidocaine 4 % Patch ADH..PATCH 1 PATCH TRANSDERMA (07:48)
[2025-04-28] MEDS: Albuterol/Iprat 2.5/0.5MG 3 ML AMPUL.NEB INHALE ×4 (08:09→19:11)
[2025-04-28 08:37] LABS: ABG HCO3 36 mmol/L (22-26); ABG O2 % Saturation 92.0 %
[2025-04-28] MEDS: 0.9 % Sodium Chloride Flush 3 ML SYRINGE IVFLUSH ×2 (10:16→16:16)
--- NOTE | 2025-04-28 10:54 | MHC.CM.PN ---
EMR REVIEWED, PER HOSPITALIST PT WILL NOT BE CLEARED FOR DC TODAY, TRANSPORT CANCELLED AND PT'S ARMHOLE SEWER MICHELLE #ON FILE AND NAUN #ON FILE UPDATED, PT ON 4L O2 NC AND BIPAP AT [facility], CM WILL CONT TO FOLLOW DC NEEDS.
[2025-04-28 10:57] LABS: Glucose, Whole Blood 128 mg/dL (60-115)
--- NOTE | 2025-04-28 15:30 | MHC.SLORD ---
Speech Language Pathology Order Status: Patient seen for clinical swallow eval 04/24, presenting with mild oral phase dysphagia d/t edentulous status, heightened aspiration risk associated with poor positioning due to back pain and compromised respiratory system/COPD. At home patient was eating while lying down and turned to his side. Chest CT showing near complete opacification of the right lower lobe and partial opacification of the right middle lobe, consistent with atelectasis or pneumonia. Small right pleural effusion. Patient seen in ICU 04/24, tolerated elevation of bariatric bed to 70 degrees very gradually and was recommend feeding in 70-90 degree position and [facility] (NDD[facility]) diet for ease of mastication and THIN liquids (via teaspoon or INDIVIDUAL straw sips), pills CRUSHED in PUREE. CNAs reporting this morning that patient refuses to elevate bed, was shouting when attempting to elevate HoB less than 30 degrees, and will only eat while lying down. He ate minimally this morning, just eating some yogurt for breakfast, stated that his SOB would improve if he were given some rice. RN also reports patient was c/o food consistency that it was not real food what he was eating. MANAGEMENT CONSULTANT explained rationale for softer diet, as patient had a harder time managing harder solids when initially evaluated d/t oxygen desaturation while chewing. Patient was sleeping when MANAGEMENT CONSULTANT arrived, had on Oxymask. MANAGEMENT CONSULTANT attempted to coordinate with PT for mutual visit to assist with positioning for PO trials, however, unable to schedule today. Plan for dysphagia treatment with PT tomorrow a.m. PT reports patient was able to elevate HoB almost to 45 degrees this afternoon and would likely need bed with straps for feeding in upright/reverse Trendelenburg position, which is not accessible at this time. MANAGEMENT CONSULTANT will continue to follow closely.
[2025-04-28] MEDS: traZODone HCL 25 MG HALFTAB PO (16:13)
[2025-04-28 16:36] LABS: Glucose, Whole Blood 180 mg/dL (60-115)
--- NOTE | 2025-04-28 16:58 | HO.PM.IMPN ---
Subjective Subjective Date of Service: 04/28/25 Interval History: copd /chf Review of Systems sob imrpoving but still sob with minimal excersion Review of Systems: Yes all other systems are reviewed and are negative Physical Exam Exam: Exam: Appearance:no acute distress, alert and awake near baseline per family. cvs: rrr, [id number] . res: air netry diminshed right>left abd: no rebound or guarding ,nt, bs present. ext pulses present , no cyanosis. neuro: limited ,moves allext Vital Signs: Vital Signs: Last Vital Signs Temp 97.4 F 04/28/25 16:00 Pulse 77 04/28/25 15:17 Resp 18 04/28/25 16:00 BP 135/63 04/28/25 16:00 Pulse Ox 92 04/28/25 16:00 O2 Del Method Oxymask 04/28/25 16:00 O2 Flow Rate 4 04/28/25 16:00 FiO2 30 04/27/25 03:23 BMI result Body Mass Index 41.2 Objective Data Active Medications Acetaminophen (Acetaminophen 325 Mg Tablet) 975 mg PO Q6H PRN PRN Reason: Fever Last Admin: 04/28/25 12:53 Dose: 975 mg Documented By: HENRY Albuterol/Ipratropium (Albuterol/Iprat 2.5/0.5mg 3 Ml Ampul.Neb) 3 ml INHALE RQ4H WHILE AWAKE [facility] Last Admin: 04/28/25 15:16 Dose: 3 ml Documented By: JOSE Dextrose (Dextrose 50 % 25 Gm/50 Ml Syringe) 25 gm IVPUSH Q15M PRN; Protocol PRN Reason: per Hypoglycemia Standing Ord. Furosemide (Furosemide 20 Mg Tablet) 20 mg PO DAILY [facility]; Protocol Last Admin: 04/28/25 07:36 Dose: 20 mg Documented By: SHANNON Heparin Sodium (Porcine) (Heparin Sodium,Porcine 5,000 Unit/Ml Vial) 5,000 unit SUBCUT Q8H NATALYA Last Admin: 04/28/25 10:55 Dose: 5,000 unit Documented By: SHANNON Insulin Human Lispro (Insulin Lispro 100 Unit/Ml 3 Ml Vial) 0 unit SUBCUT QIDACHS [facility]; Protocol Last Admin: 04/28/25 16:44 Dose: 2 unit Documented By: SHANNON Lactulose (Lactulose 20 Gm/30 Ml Solution) 30 gm PO BID [facility] Last Admin: 04/28/25 07:36 Dose: 30 gm Documented By: SHANNON Lidocaine (Lidocaine 4 % Patch Adh..Patch) 1 patch TRANSDERMA DAILY [facility]; Protocol Last Admin: 04/28/25 07:48 Dose: 1 patch Documented By: SHANNON Lisinopril (Lisinopril 2.5 Mg Tablet) 2.5 mg PO DAILY [facility]; Protocol Last Admin: 04/28/25 07:36 Dose: 2.5 mg Documented By: SHANNON Nystatin (Nystatin Powder 15 Gm Bottle) 1 appl TOPICAL BID [facility]; Protocol Last Admin: 04/28/25 10:18 Dose: 1 appl Documented By: SHANNON Sodium Chloride (0.9 % Sodium Chloride Flush 3 Ml Syringe) 3 ml IVFLUSH QSHIFT [facility] Last Admin: 04/28/25 16:16 Dose: 3 ml Documented By: SHANNON Trazodone HCl (Trazodone Hcl 25 Mg Halftab) 25 mg PO TID PRN PRN Reason: Pain, Severe (Pain Scale 7-10) Last Admin: 04/28/25 16:13 Dose: 25 mg Documented By: SHANNON Labs 04/25/25 07:00 04/27/25 08:44 Labs: Laboratory Results - last 24 hr 04/27/25 04/28/25 04/28/25 20:32 06:57 08:33 O2 Saturation 92.0 ABG pH at Pt Temp 7.32 L ABG pCO2 at Pt Temp 69 H* ABG pO2 at Pt Temp 72 L ABG HCO3 36 H ABG Base Excess (Actual) 7.3 POC Glucose 128 H 117 H 04/28/25 04/28/25 10:50 16:27 O2 Saturation ABG pH at Pt Temp ABG pCO2 at Pt Temp ABG pO2 at Pt Temp ABG HCO3 ABG Base Excess (Actual) POC Glucose 128 H 180 H Assessment and Plan (1) Acute exacerbation of CHF (congestive heart failure): Status: Acute (2) Acute respiratory failure with hypoxia and hypercarbia: Status: Acute Plan 75-year-old gentleman with underlying hypertension, diabetes mellitus, COPD, chronic back pain, and unspecified congestive heart failure present in on 04/22/2025 complaining of slowly worsening dyspnea. On ER patient noted to be hypoxic and hypercapnic requiring BiPAP support. He was started on empiric diuresis and admitted to the intensive care unit. CT chest shows stigmata of chronic aspiration. acute hypoxic and hypercapnic failuer sec Chf (HfpEf) exacerbation &obesity hyperventilation syndrome requiring BiPAP support, titrated off daytime BiPAP, continue nocturnal BiPAP. CT chest with stigmata of chronic aspiration.: Monitor I&O:negative7.8 L Shortness of breaths improving Plan-will consider switching to po diuretics,taper oxygen .sleep study overnight added copd/?atelactasis: stable continue nebs , incentive spirometry, chest physiotherapy Diabetes: hba1c 6.5 moniter fs and sliding scale insulin. Morbid obesity: Encouraged to cutdown calories/lose weight. generalised weak/limited mobility as per icu info: mostly on the chair ,eats leaning on one side : seen by INSTRUCTIONAL MANAGER: suggested NDD2 diet. DVT prophylaxis subQHeparin ongoing need for stay:acute hypoxic and hypercapnic failuer sec Chf (HfpEf) exacerbation-taper oxygen , moniter renal function/electrolytes . family updated-it seems like patient can not even sit at baseline, eats lying down and turning his back to the 1 side, at home was passing stool in his shower because can not sit on the toilet, functional baseline is poor. Quality Stroke Does the patient have a stroke diagnosis?: No VTE Prior VTE?: No VTE Risk Level:: Medical - moderate - high VTE Device Contraindication: N/A - Device Ordered VTE Drug Contraindication: N/A - Med Ordered
[2025-04-28 20:04] LABS: ABG Refer to POC result
[2025-04-28 21:34] LABS: Glucose, Whole Blood 144 mg/dL (60-115)
[2025-04-29] VITALS (13 sets, daily range): BP systolic 117–136; BP diastolic 63–75; PULSE 7–78; RESP 17–22; TEMP 36.1–37; O2SAT 83–95
[2025-04-29] MEDS: 0.9 % Sodium Chloride Flush 3 ML SYRINGE IVFLUSH ×4 (02:02→21:00)
[2025-04-29 07:03] LABS: Glucose, Whole Blood 118 mg/dL (60-115)
[2025-04-29] MEDS: Albuterol/Iprat 2.5/0.5MG 3 ML AMPUL.NEB INHALE ×4 (07:27→20:00)
[2025-04-29] MEDS: Lidocaine 4 % Patch ADH..PATCH 1 PATCH TRANSDERMA (09:25)
--- NOTE | 2025-04-29 10:51 | MHC.SL.SWA ---
Addendum entered and electronically signed by Gila Rodriguez MS, CCC-VALVE SEATER OPERATOR 04/29/25 14:17: VALVE SEATER OPERATOR followup with PT today, PT has d/c'd pt as skilled intervention not appropriate d/t significance and nature of pt limitations. Pt uses sidelying position to eat. Pt remains at high risk for recurrent aspiration relative to compromised airway protection in presence of positioning limitations secondary to profound pain. VALVE SEATER OPERATOR to continue with tx and education in facilitiating pt understanding of risks for aspiration; however, prognosis for safe and efficient PO tolerance is guarded. Original Note: Speech Pathologist Impression: Mild oral and mild to moderate pharyngeal dysphagia Risk of Aspiration Due to: Positioning limitations Decreased awareness of aspiration risks Hx of chronic aspiration PNA Dysphasia Diet Status: NDD2 with thins, recc HOB elevated to highest degree pt can tolerate, see PT recommendations. Direct supervision at meals, provide assistance w/utensils and containers as needed. Liquid Consistency and Strategies for Safe Swallow: Liquid Intake Recommendation: Thin Liquid Intake Strategies: Small Sips No Straws Double Swallow Solid Food Consistency: Dietary Recommendations: Grnd/Mech Altered (NDD2) Additional Modifications to Solid Foods: Oral Medication Intake: Crushed with Puree Please contact the pharmacy regarding appropriate crushable or liquid drug formulations that are available whenever modified delivery is recommended. Compensatory Strategies and Precautions to be Taken for Safe Swallow: Turn Head Right Double Swallow No Straw Small Bites and Sips Rate of Ingestion Change Supervision While Eating and Drinking for Safe Swallow: Total Assistance (1:1) Foods to Avoid: Swallowing Recommended Treatments: Compens. Strategy Educat. Recommendation for Speech: Inpatient Speech Therapy Comment: PPt seen for dysphagia treatment. Interpreters present. VALVE SEATER OPERATOR last saw pt 04/28, report indicated PT will attempt positioning pt in reverse [place]. Pt motor speech rapid, efficient, absent of dysarthria during press of speech (tangential, perseverative content). Pt was able to answer simple questions given prompting and repetition as he could resume attention to topic. RN and MSWS attempted to reposition pt in more upright position, with HOB elevated slightly; pt could only tolerate slight elevation d/t severe pain. RN administered meds in puree and in liquid form. Pt tolerated purees with adequate oropharyngeal coordination, motor speech remained rapid with mild dysarthria onset characterized by posterior tongue weakness. Pt sipped liquids by with moderate anterior loss on R side of mouth when head rotated to R side. Pt endorsed side lying position to eat but remained supine when taking meds, rotating head for sips of liquid meds. Pt voicing was clear prior to intake of meds, vocal wetness increased s/p liquids. Pt cued to clear throat, upon clearing throat, reflexive swallow triggered. VALVE SEATER OPERATOR attempted to educate pt on physiological function of swallow mechanism and airway protection but pt did not show adequate understanding. Pt repeated that he has a cough and mucous, but was unable to process relationship between symptoms and likelihood of aspiration. VALVE SEATER OPERATOR will continue to provide education to encourage pt comprehension of associated risk for pulmonary compromise given his hx of chronic aspiration. VALVE SEATER OPERATOR to consult with PT and re-assess daily. Frequency/Duration: M-F Date Range for Service Req: Timeline to reassess: Sow Farm Manager Clinican/Clinical Fellow: No Supervisory Statement: I have reviewed and agree with the student/clinical fellow's documentation: N/A Speech Language Pathologist: Gila Rodriguez M.S., CCC-VALVE SEATER OPERATOR
--- NOTE | 2025-04-29 10:56 | PC.RT ---
Modified home O2 eval completed. Pt is bed bound at baseline. Pt SAT on RA 83%. SAT increased to 91% on 2L.
[2025-04-29 11:01] LABS: Glucose, Whole Blood 134 mg/dL (60-115)
--- NOTE | 2025-04-29 11:15 | PC.RT ---
Patient admitted with acute chf and hypercapia. Pt was placed on Bipap due due increased sob and elevated C02. Initial VBG was Ph 7.24 Pc02 90 P02 [address] in Bipa settings of Bipap Ipap 20 Epap 6 then following vbg was ph 7.27 Pc02 86 P02 40 Hc03 40. The patient continued to be on Bipap therapy every night and VBg's in the morning were doen with elevated c02 all greater than 69 or hugheer. Pt will need Bipap upon discharge of home. Dr. Cantu orgered Bipap Ipap 18 and Epap 10 with oxygen titartion of 2 liters based of pt resting home oxygen evaluation. Pt also will need 2liters of oxygen titrated into Bipap as well.
--- NOTE | 2025-04-29 13:18 | MHC.CM.PN ---
CM spoke to Estefanía, pt.'s DRYWALL TAPER HELPER and his Radha to discuss DCP. Plan is for pt. to go to Estefanía's home, where she and her son will take care of him and someone will always be home. Radha is in agreement with this plan.
--- NOTE | 2025-04-29 14:48 | HO.PM.IMPN ---
Subjective Subjective Date of Service: 04/29/25 Interval History: chf Review of Systems sob seems improving mental status also near baseline Physical Exam Exam: Exam: Appearance:no acute distress, alert and awake near baseline per family. cvs: rrr, [id number] . res: air netry diminshed right>left abd: no rebound or guarding ,nt, bs present. ext pulses present , no cyanosis. neuro: limited ,moves allext Vital Signs: Vital Signs: Last Vital Signs Temp 98.6 F 04/29/25 10:52 Pulse 76 04/29/25 11:29 Resp 18 04/29/25 11:29 BP 125/75 04/29/25 10:52 Pulse Ox 94 04/29/25 10:52 O2 Del Method Oxymask 04/29/25 10:52 O2 Flow Rate 2 04/29/25 10:52 FiO2 30 04/29/25 03:38 BMI result Body Mass Index 41.2 Objective Data Active Medications Acetaminophen (Acetaminophen 325 Mg Tablet) 975 mg PO Q6H PRN PRN Reason: Fever Last Admin: 04/28/25 12:53 Dose: 975 mg Documented By: HENRY Albuterol/Ipratropium (Albuterol/Iprat 2.5/0.5mg 3 Ml Ampul.Neb) 3 ml INHALE RQ4H WHILE AWAKE [facility] Last Admin: 04/29/25 11:27 Dose: 3 ml Documented By: SP Dextrose (Dextrose 50 % 25 Gm/50 Ml Syringe) 25 gm IVPUSH Q15M PRN; Protocol PRN Reason: per Hypoglycemia Standing Ord. Furosemide (Furosemide 20 Mg Tablet) 20 mg PO DAILY [facility]; Protocol Last Admin: 04/29/25 09:25 Dose: 20 mg Documented By: HENRY Heparin Sodium (Porcine) (Heparin Sodium,Porcine 5,000 Unit/Ml Vial) 5,000 unit SUBCUT Q8H [facility] Last Admin: 04/29/25 09:25 Dose: 5,000 unit Documented By: HENRY Insulin Human Lispro (Insulin Lispro 100 Unit/Ml 3 Ml Vial) 0 unit SUBCUT QIDACHS [facility]; Protocol Last Admin: 04/29/25 11:11 Dose: Not Given Documented By: HENRY Non-Admin Reason: No Insulin Coverage Lactulose (Lactulose 20 Gm/30 Ml Solution) 30 gm PO BID [facility] Last Admin: 04/29/25 09:26 Dose: 30 gm Documented By: HENRY Lidocaine (Lidocaine 4 % Patch Adh..Patch) 1 patch TRANSDERMA DAILY [facility]; Protocol Last Admin: 04/29/25 09:25 Dose: 1 patch Documented By: HENRY Lisinopril (Lisinopril 2.5 Mg Tablet) 2.5 mg PO DAILY [facility]; Protocol Last Admin: 04/29/25 09:25 Dose: 2.5 mg Documented By: HENRY Nystatin (Nystatin Powder 15 Gm Bottle) 1 appl TOPICAL BID [facility]; Protocol Last Admin: 04/29/25 09:28 Dose: 1 appl Documented By: HENRY Sodium Chloride (0.9 % Sodium Chloride Flush 3 Ml Syringe) 3 ml IVFLUSH QSHIFT [facility] Last Admin: 04/29/25 09:26 Dose: 3 ml Documented By: HENRY Trazodone HCl (Trazodone Hcl 25 Mg Halftab) 25 mg PO TID PRN PRN Reason: Pain, Severe (Pain Scale 7-10) Last Admin: 04/28/25 16:13 Dose: 25 mg Documented By: SHANNON Labs 04/25/25 07:00 04/27/25 08:44 Labs: Laboratory Results - last 24 hr 04/28/25 04/28/25 04/29/25 16:27 20:56 06:59 POC Glucose 180 H 144 H 118 H 04/29/25 10:55 POC Glucose 134 H Assessment and Plan (1) Acute exacerbation of CHF (congestive heart failure): Status: Acute (2) Acute respiratory failure with hypoxia and hypercarbia: Status: Acute Plan 75-year-old gentleman with underlying hypertension, diabetes mellitus, COPD, chronic back pain, and unspecified congestive heart failure present in on 04/22/2025 complaining of slowly worsening dyspnea. On ER patient noted to be hypoxic and hypercapnic requiring BiPAP support. He was started on empiric diuresis and admitted to the intensive care unit. CT chest shows stigmata of chronic aspiration. acute hypoxic and hypercapnic failuer sec Chf (HfpEf) exacerbation &obesity hyperventilation syndrome requiring BiPAP support, titrated off daytime BiPAP, continue nocturnal BiPAP. CT chest with stigmata of chronic aspiration.: Monitor I&O:negative7.8 L Shortness of breaths improving Plan-will consider switching to po diuretics,taper oxygen .sleep study overnight added copd/?atelactasis: stable continue nebs , incentive spirometry, chest physiotherapy Diabetes: hba1c 6.5 moniter fs and sliding scale insulin. Morbid obesity: Encouraged to cutdown calories/lose weight. generalised weak/limited mobility as per icu info: mostly on the chair ,eats leaning on one side : seen by ESTATE PLANNING DIRECTOR: suggested NDD2 diet.ct shows stigmata ch aspiration family/care takers says he has been eating like lying from many years DVT prophylaxis subQ Heparin ongoing need for stay:acute hypoxic and hypercapnic failuer sec Chf (HfpEf) exacerbation-taper oxygen , moniter renal function/electrolytes . family updated-it seems like patient can not even sit at baseline, eats lying down and turning his back to the 1 side, at home was passing stool in his shower because can not sit on the toilet, functional baseline is poor. Quality Stroke Does the patient have a stroke diagnosis?: No VTE Prior VTE?: No VTE Risk Level:: Medical - moderate - high VTE Device Contraindication: N/A - Device Ordered VTE Drug Contraindication: N/A - Med Ordered
[2025-04-29 16:29] LABS: Glucose, Whole Blood 180 mg/dL (60-115)
[2025-04-29 21:10] LABS: Glucose, Whole Blood 150 mg/dL (60-115)
[2025-04-29 22:14] LABS: VBG HCO3 34 mmol/L (22-26); VBG O2 % Saturation 80.0 %
[2025-04-30] VITALS (13 sets, daily range): BP systolic 116–150; BP diastolic 57–72; PULSE 66–81; RESP 15–28; TEMP 36.1–37.2; O2SAT 90–97
[2025-04-30 07:28] LABS: Glucose, Whole Blood 107 mg/dL (60-115)
[2025-04-30] MEDS: Albuterol/Iprat 2.5/0.5MG 3 ML AMPUL.NEB INHALE ×4 (08:54→20:18)
[2025-04-30] MEDS: Lidocaine 4 % Patch ADH..PATCH 1 PATCH TRANSDERMA (09:39)
[2025-04-30] MEDS: 0.9 % Sodium Chloride Flush 3 ML SYRINGE IVFLUSH ×3 (09:39→20:40)
--- NOTE | 2025-04-30 11:13 | MHC.CM.PN ---
CM met with Patient and his Daughter/Lorena at bedside to discuss dc planning. New home O2 has been delivered but we are still waiting on the BIPAP before Patient can go home to his PEANUT CLEANER's home @ [address] in [place].CM will continue to follow.
[2025-04-30 11:39] LABS: Glucose, Whole Blood 174 mg/dL (60-115)
--- NOTE | 2025-04-30 15:15 | HO.PM.IMPN ---
Subjective Subjective Date of Service: 04/30/25 Interval History: Seen and examined this morning History obtained with the assistance of a ground crew linesman no cough or sob; does not want to sit up in bed or get out of bed Constitutional Constitutional: Denies chills and Denies fever(s) Physical Exam Vital Signs: Vital Signs: Last Vital Signs Temp 97.1 F 04/30/25 11:39 Pulse 74 04/30/25 11:39 Resp 28 H 04/30/25 14:45 BP 117/59 L 04/30/25 11:39 Pulse Ox 90 L 04/30/25 11:56 O2 Del Method Oxymask 04/30/25 11:56 O2 Flow Rate 2 04/30/25 11:56 FiO2 30 04/30/25 08:00 BMI result Body Mass Index 41.2 Const: General: comfortable, alert and awake Nutritional Appearance: obese Orientation/consciousness: patient oriented x3 Resp: Other: dim no wheeze Effort & Inspection: able to speak in complete sentences and no use of accessory muscles Cardio: Rate: regular rate GI: Inspection: No distended and Yes obesity Palpation (GI): Soft to palpation Neuro: Other: grossly nonfocal General: patient oriented x3 Objective Data Active Medications Acetaminophen (Acetaminophen 325 Mg Tablet) 975 mg PO Q6H PRN PRN Reason: Fever Last Admin: 04/30/25 09:53 Dose: 975 mg Documented By: LIYA Albuterol/Ipratropium (Albuterol/Iprat 2.5/0.5mg 3 Ml Ampul.Neb) 3 ml INHALE RQ4H WHILE AWAKE [facility] Last Admin: 04/30/25 11:16 Dose: 3 ml Documented By: TRAY Dextrose (Dextrose 50 % 25 Gm/50 Ml Syringe) 25 gm IVPUSH Q15M PRN; Protocol PRN Reason: per Hypoglycemia Standing Ord. Furosemide (Furosemide 20 Mg Tablet) 20 mg PO DAILY [facility]; Protocol Last Admin: 04/30/25 09:38 Dose: 20 mg Documented By: LIYA Heparin Sodium (Porcine) (Heparin Sodium,Porcine 5,000 Unit/Ml Vial) 5,000 unit SUBCUT Q8H [facility] Last Admin: 04/30/25 09:39 Dose: 5,000 unit Documented By: LIYA Insulin Human Lispro (Insulin Lispro 100 Unit/Ml 3 Ml Vial) 0 unit SUBCUT QIDACHS [facility]; Protocol Last Admin: 04/30/25 11:45 Dose: 2 unit Documented By: LIYA Lactulose (Lactulose 20 Gm/30 Ml Solution) 30 gm PO BID [facility] Last Admin: 04/30/25 09:38 Dose: 30 gm Documented By: LIYA Lidocaine (Lidocaine 4 % Patch Adh..Patch) 1 patch TRANSDERMA DAILY [facility]; Protocol Last Admin: 04/30/25 09:39 Dose: 1 patch Documented By: LIYA Lisinopril (Lisinopril 2.5 Mg Tablet) 2.5 mg PO DAILY [facility]; Protocol Last Admin: 04/30/25 09:38 Dose: 2.5 mg Documented By: LIYA Nystatin (Nystatin Powder 15 Gm Bottle) 1 appl TOPICAL BID [facility]; Protocol Last Admin: 04/30/25 09:39 Dose: 1 appl Documented By: LIYA Sodium Chloride (0.9 % Sodium Chloride Flush 3 Ml Syringe) 3 ml IVFLUSH QSHIFT [facility] Last Admin: 04/30/25 09:39 Dose: 3 ml Documented By: LIYA Trazodone HCl (Trazodone Hcl 25 Mg Halftab) 25 mg PO TID PRN PRN Reason: Pain, Severe (Pain Scale 7-10) Last Admin: 04/28/25 16:13 Dose: 25 mg Documented By: SHANNON Labs 04/25/25 07:00 04/27/25 08:44 Labs: Laboratory Results - last 24 hr 04/29/25 04/29/25 04/29/25 16:20 21:05 22:09 VBG pH 7.38 VBG pCO2 58 VBG pO2 52 VBG HCO3 34 H VBG O2 Saturation 80.0 VBG Base Excess 7.4 POC Glucose 180 H 150 H 04/30/25 04/30/25 07:16 11:35 VBG pH VBG pCO2 VBG pO2 VBG HCO3 VBG O2 Saturation VBG Base Excess POC Glucose 107 174 H Assessment and Plan (1) Acute respiratory failure with hypoxia and hypercarbia: Status: Acute Plan This is a 75-year-old gentleman with underlying hypertension, diabetes mellitus, COPD, chronic back pain, and unspecified congestive heart failure present in on 04/22/2025 complaining of slowly worsening dyspnea. On ER patient noted to be hypoxic and hypercapnic requiring BiPAP support. He was started on empiric diuresis and initially admitted to the intensive care unit, downgraded to the medical floor on acute hypoxic and hypercapnic respiratory failure multifactorial due to Chf (HfpEf) exacerbation & obesity hyperventilation syndrome requiring BiPAP support continue nocturnal BiPAP and daytime prn for naps CT chest with stigmata of chronic aspiration - seen by SALES SUPPORT ENGINEER rec NDD2 diet and elevating bed to highest degree pt will tolerate (pt refuses to sit up) overall net negative 10L with IV diuresis, now transitioned to po lasix had overnight sleep study requires continuous oxygen 2L NC continue nebs, incentive spirometry, chest physiotherapy Diabetes: hba1c 6.5 on glipizide and lantus at baseline continue SSI, ADA diet Morbid obesity: Encouraged to cutdown calories/lose weight. generalized weak/limited mobility family/care takers says he has been eating lying from many years HTN lisinopril resumed at low dose 2.5 mg (on 10mg at baseline) chronic back pain oxycodone has been on hold due to hypercarbic respiratory failure DVT prophylaxis subQ Heparin ongoing need for stay:acute hypoxic and hypercapnic failure requiring bipap, awaiting insurance authorization for delivery of BiPAP machine for home and oxygen; at risk for recurrent respiratory failure/hypercarbia without bipap family updated-it seems like patient can not even sit at baseline, eats lying down and turning his back to the 1 side, at home was passing stool in his shower because can not sit on the toilet, functional baseline is poor. Quality Stroke Does the patient have a stroke diagnosis?: No VTE Prior VTE?: No VTE Risk Level:: Medical - moderate - high VTE Device Contraindication: N/A - Device Ordered VTE Drug Contraindication: N/A - Med Ordered
[2025-04-30 16:18] LABS: Glucose, Whole Blood 167 mg/dL (60-115)
[2025-04-30 21:18] LABS: Glucose, Whole Blood 164 mg/dL (60-115)
[2025-05-01] VITALS (14 sets, daily range): BP systolic 127–143; BP diastolic 59–73; PULSE 68–90; RESP 17–22; TEMP 36.1–36.8; O2SAT 90–96
[2025-05-01 07:17] LABS: Glucose, Whole Blood 135 mg/dL (60-115)
[2025-05-01] MEDS: Albuterol/Iprat 2.5/0.5MG 3 ML AMPUL.NEB INHALE ×4 (08:05→18:43)
[2025-05-01] MEDS: Lidocaine 4 % Patch ADH..PATCH 1 PATCH TRANSDERMA (09:27)
[2025-05-01] MEDS: 0.9 % Sodium Chloride Flush 3 ML SYRINGE IVFLUSH ×3 (09:37→21:54)
[2025-05-01 11:08] LABS: Glucose, Whole Blood 130 mg/dL (60-115)
--- NOTE | 2025-05-01 13:18 | MHC.SLORD ---
Speech Language Pathology Order Status: VENEER PATCHER arrived for breakfast earlier this a.m., however, nursing staff reported patient had already eaten. VENEER PATCHER attempted to see patient again at lunch time, however, patient refusing lunch despite encouragement. Patient allowed elevation of HoB to 30 degrees and then began groaning, reported back pain and asked VENEER PATCHER not to elevate any further. Three LITIGATION DOCKET MANAGER's arrived at different points who are familiar with patient and inquired patient about lunch, but patient again refused all inquiries. Patient refused to allow lowering of legs to position upright (reverse trendelenburg). Unable to see patient for dysphagia treatment, as patient refused to participate this date. Patient chronically eats while lying down, has significant challenges to positioning, and is at significant risk for aspiration in this position. PT has signed off, as patient is unable to flex at hips/trunk, unable to sit, unsafe/impossible to simulate patient's home environment to determine his ability to stand and walk. Per CM, DCP is for patient to go home to DIAGRAMMER's home, discussed w/ PA via [place] and RT on unit, home O2 has been delivered but still waiting on the BIPAP.
--- NOTE | 2025-05-01 13:33 | MHC.SLORD ---
Speech Language Pathology Order Status: FOOD AND BEVERAGE OUTLETS MANAGER arrived for breakfast earlier this a.m., however, nursing staff reported patient had already eaten. FOOD AND BEVERAGE OUTLETS MANAGER attempted to see patient again at lunch time, however, patient refusing lunch despite encouragement. Patient allowed elevation of HoB to 30 degrees and then began groaning, reported back pain and asked not to elevate any further. Three CABLE SPLICING TECHNICIAN's arrived at different points who are familiar with patient and inquired patient about lunch, but patient again refused all inquiries. Patient refused to allow lowering of legs to position upright. Unable to see patient for dysphagia treatment, as patient refused to participate this date and refused to allow for safer positioning. Patient chronically eats while lying down, has significant challenges to positioning, and is at significant risk for aspiration in this position. PT has signed off, as patient is unable to flex at hips/trunk, unable to sit, unsafe/impossible to simulate patient's home environment to determine his ability to stand and walk. Discussed w/ Cyndi NAVA, patient had conversation w/ PA about these risks. PA resumed oxycodone, but patient does not/ is not able to sit up. Per PA, FOOD AND BEVERAGE OUTLETS MANAGER consult no longer indicated at this time. Please re-refer with any changes or if we can be of further assistance.
--- NOTE | 2025-05-01 14:13 | HO.PM.IMPN ---
Subjective Subjective Date of Service: 05/01/25 Interval History: Examined this morning Follow-up for hypercarbic respiratory failure No overnight events No specific complaints this morning, patient requesting oxycodone be resumed Continues to refuse to sit up past 30 degrees Review of Systems Review of Systems: Yes all other systems are reviewed and are negative Constitutional Constitutional: Denies chills and Denies fever(s) Physical Exam Vital Signs: Vital Signs: Last Vital Signs Temp 97.5 F 05/01/25 10:58 Pulse 68 05/01/25 11:45 Resp 18 05/01/25 11:45 BP 143/73 H 05/01/25 10:58 Pulse Ox 93 05/01/25 10:58 O2 Del Method Oxymask 05/01/25 10:58 O2 Flow Rate 2 05/01/25 10:58 FiO2 30 05/01/25 08:00 BMI result Body Mass Index 41.2 Const: General: comfortable, alert and awake Nutritional Appearance: obese Orientation/consciousness: patient oriented x3 Resp: Other: dim no wheeze Effort & Inspection: able to speak in complete sentences and no use of accessory muscles Cardio: Rate: regular rate GI: Inspection: No distended and Yes obesity Palpation (GI): Soft to palpation Neuro: Other: grossly nonfocal General: patient oriented x3 Objective Data Active Medications Acetaminophen (Acetaminophen 325 Mg Tablet) 975 mg PO Q6H PRN PRN Reason: Fever Last Admin: 04/30/25 09:53 Dose: 975 mg Documented By: LIYA Albuterol/Ipratropium (Albuterol/Iprat 2.5/0.5mg 3 Ml Ampul.Neb) 3 ml INHALE RQ4H WHILE AWAKE [facility] Last Admin: 05/01/25 11:41 Dose: 3 ml Documented By: KOFI Dextrose (Dextrose 50 % 25 Gm/50 Ml Syringe) 25 gm IVPUSH Q15M PRN; Protocol PRN Reason: per Hypoglycemia Standing Ord. Furosemide (Furosemide 20 Mg Tablet) 20 mg PO DAILY [facility]; Protocol Last Admin: 05/01/25 09:28 Dose: 20 mg Documented By: JON Heparin Sodium (Porcine) (Heparin Sodium,Porcine 5,000 Unit/Ml Vial) 5,000 unit SUBCUT Q8H [facility] Last Admin: 05/01/25 11:10 Dose: 5,000 unit Documented By: JON Insulin Human Lispro (Insulin Lispro 100 Unit/Ml 3 Ml Vial) 0 unit SUBCUT QIDACHS [facility]; Protocol Last Admin: 05/01/25 11:13 Dose: Not Given Documented By: JON Non-Admin Reason: No Insulin Coverage Lactulose (Lactulose 20 Gm/30 Ml Solution) 30 gm PO BID [facility] Last Admin: 05/01/25 09:29 Dose: 30 gm Documented By: JON Lidocaine (Lidocaine 4 % Patch Adh..Patch) 1 patch TRANSDERMA DAILY [facility]; Protocol Last Admin: 05/01/25 09:27 Dose: 1 patch Documented By: JON Lisinopril (Lisinopril 2.5 Mg Tablet) 2.5 mg PO DAILY [facility]; Protocol Last Admin: 05/01/25 09:29 Dose: 2.5 mg Documented By: JON Nystatin (Nystatin Powder 15 Gm Bottle) 1 appl TOPICAL BID [facility]; Protocol Last Admin: 05/01/25 09:30 Dose: 1 appl Documented By: JON Omeprazole (Omeprazole 20 Mg Capsule.Dr) 20 mg PO DAILY@0630 [facility] Last Admin: 05/01/25 05:51 Dose: 20 mg Documented By: KALEB Oxycodone HCl (Oxycodone Hcl Immed Release 5 Mg Tablet) 1 mg PO Q12H PRN PRN Reason: Pain, Severe (Pain Scale 7-10) Pravastatin Sodium (Pravastatin Sodium 40 Mg Tablet) 40 mg PO BEDTIME [facility] Last Admin: 04/30/25 20:34 Dose: 40 mg Documented By: KALEB Sodium Chloride (0.9 % Sodium Chloride Flush 3 Ml Syringe) 3 ml IVFLUSH QSHICHI [facility] Last Admin: 05/01/25 09:37 Dose: 3 ml Documented By: JON Trazodone HCl (Trazodone Hcl 25 Mg Halftab) 25 mg PO TID PRN PRN Reason: Pain, Severe (Pain Scale 7-10) Last Admin: 04/28/25 16:13 Dose: 25 mg Documented By: SHANNON Labs 04/25/25 07:00 04/27/25 08:44 Labs: Laboratory Results - last 24 hr 04/30/25 04/30/25 05/01/25 16:13 21:03 06:55 POC Glucose 167 H 164 H 135 H 05/01/25 10:53 POC Glucose 130 H Assessment and Plan (1) Acute exacerbation of chronic obstructive pulmonary disease: Status: Acute (2) Acute respiratory failure with hypoxia and hypercarbia: Status: Acute Plan This is a 75-year-old gentleman with underlying hypertension, diabetes mellitus, COPD, chronic back pain, and unspecified congestive heart failure present in on 04/22/2025 complaining of slowly worsening dyspnea. On ER patient noted to be hypoxic and hypercapnic requiring BiPAP support. He was started on empiric diuresis and initially admitted to the intensive care unit, downgraded to the medical floor on acute hypoxic and hypercapnic respiratory failure multifactorial due to Chf (HfpEf) exacerbation & obesity hyperventilation syndrome requiring BiPAP support continue nocturnal BiPAP and daytime prn for naps; needs bipap arranged prior to d/c CT chest with stigmata of chronic aspiration - seen by ROASTER HELPER rec NDD2 diet and elevating bed to highest degree pt will tolerate (pt refuses to sit up) overall net negative 10L with IV diuresis, now transitioned to po lasix had overnight sleep study requires continuous oxygen 2L NC continue nebs, incentive spirometry Diabetes: hba1c 6.5 on glipizide and lantus at baseline - will likely need to be resumed upon discharge continue SSI, ADA diet Morbid obesity: BMI 41.2 Encouraged to cutdown calories/lose weight. generalized weak/limited mobility family/care takers says he has been eating in lying position for many years discharged from PT HTN lisinopril resumed at low dose 2.5 mg, will increase to 5mg (on 10mg at baseline) chronic back pain oxycodone has been on hold due to hypercarbic respiratory failure pt requests to have it resumed, says his mobility will be better if his back pain is controlled monitor for oversedation DVT prophylaxis subQ Heparin ongoing need for stay:acute hypoxic and hypercapnic failure requiring bipap, awaiting insurance authorization for delivery of BiPAP machine for home and oxygen; at risk for recurrent respiratory failure/hypercarbia without bipap family updated-it seems like patient can not even sit at baseline, eats lying down and rolls side to side, at home was passing stool in his shower because can not sit on the toilet, functional baseline is poor. Quality Stroke Does the patient have a stroke diagnosis?: No VTE Prior VTE?: No VTE Risk Level:: Medical - moderate - high VTE Device Contraindication: N/A - Device Ordered VTE Drug Contraindication: N/A - Med Ordered
--- NOTE | 2025-05-01 15:29 | P.CDIM_ITS ---
PROVIDER RESPONSE TEXT: To clarify, the appropriate diagnosis supported by the clinical indicators: Other (explain): acute hypoxia AND hypercarbic respiratory failure QUERY TEXT: PHYSICIAN'S DOCUMENTATION REQUEST Date of Query: 05/01/2025 08:43 AM EDT Patient Name: Rangel Calderon Admit Date: 04/22/2025 Dear Cyndi NAVA, A review of the medical record indicates additional documentation may be needed. Please review below and update the documentation accordingly. Clinical Indicators: Progress note dated 04/30/25 - Chronic back pain Oxycodone has been on hold due to hypercarbic respiratory failure. ABG's pCO2 69* H Worsening dyspnea, hypoxic, hypercapnic requiring Bipap. 2 Liters NC If possible, please further clarify the acuity of noted hypercarbic respiratory failure: Acute respiratory failure with hypercarbia Acute on chronic respiratory failure with hypercarbia Other specifics to the diagnosis Other (explain) Clinically unable to determine (explain) Thank you, Hannah Montague, CCS, CDIS Use of terms such as suspected, likely, concern for, or probable (associated with a specific diagnosis that is being evaluated, monitored, or treated as if it exists) are acceptable and can be coded in the inpatient setting, when documented at the time of discharge. Please use your independent medical judgment in providing your response. THIS QUERY IS PART OF THE PERMANENT MEDICAL RECORD
[2025-05-01 16:02] LABS: Glucose, Whole Blood 152 mg/dL (60-115)
[2025-05-01 21:25] LABS: Glucose, Whole Blood 141 mg/dL (60-115)
[2025-05-01] MEDS: oxyCODONE HCl Immed Release 5 MG TABLET PO (21:51)
[2025-05-02] VITALS (12 sets, daily range): BP systolic 96–135; BP diastolic 47–73; PULSE 61–77; RESP 16–26; TEMP 36–36.6; O2SAT 90–98
[2025-05-02 07:14] LABS: Glucose, Whole Blood 113 mg/dL (60-115)
[2025-05-02] MEDS: Albuterol/Iprat 2.5/0.5MG 3 ML AMPUL.NEB INHALE ×3 (08:00→15:48)
[2025-05-02] MEDS: Lidocaine 4 % Patch ADH..PATCH 1 PATCH TRANSDERMA (09:38)
[2025-05-02] MEDS: 0.9 % Sodium Chloride Flush 3 ML SYRINGE IVFLUSH ×2 (09:45→16:39)
--- NOTE | 2025-05-02 10:53 | P.PNIM_ITS ---
Subjective Subjective Date of Service: 05/02/25 Interval History: Follow-up for hypercarbic respiratory failure No overnight events Review of Systems Review of Systems: Yes all other systems are reviewed and are negative Constitutional Constitutional: Denies chills and Denies fever(s) Physical Exam 2 Exam: Exam: Appearing in no acute distress lung sounds are clear to auscultation heart regular rate rhythm, clear S1, S2 positive bowel sounds, abdomen is soft, nontender neuro patient is alert x3, no focal deficits Vital Signs: Vital Signs: Last Vital Signs Temp 97.0 F 05/02/25 07:58 Pulse 71 05/02/25 08:02 Resp 21 H 05/02/25 08:02 BP 125/67 05/02/25 07:58 Pulse Ox 94 05/02/25 07:58 O2 Del Method BiPAP 05/02/25 07:58 O2 Flow Rate 3 05/01/25 19:35 FiO2 30 05/01/25 08:00 BMI result Body Mass Index 41.2 Objective Data Active Medications Acetaminophen (Acetaminophen 325 Mg Tablet) 975 mg PO Q6H PRN PRN Reason: Fever Last Admin: 04/30/25 09:53 Dose: 975 mg Documented By: LIYA Albuterol/Ipratropium (Albuterol/Iprat 2.5/0.5mg 3 Ml Ampul.Neb) 3 ml INHALE RQ4H WHILE AWAKE [facility] Last Admin: 05/02/25 08:00 Dose: 3 ml Documented By: JOSE Dextrose (Dextrose 50 % 25 Gm/50 Ml Syringe) 25 gm IVPUSH Q15M PRN; Protocol PRN Reason: per Hypoglycemia Standing Ord. Furosemide (Furosemide 20 Mg Tablet) 20 mg PO DAILY [facility]; Protocol Last Admin: 05/02/25 09:38 Dose: 20 mg Documented By: CLARISSA Heparin Sodium (Porcine) (Heparin Sodium,Porcine 5,000 Unit/Ml Vial) 5,000 unit SUBCUT Q8H [facility] Last Admin: 05/02/25 09:38 Dose: 5,000 unit Documented By: CLARISSA Insulin Human Lispro (Insulin Lispro 100 Unit/Ml 3 Ml Vial) 0 unit SUBCUT QIDACHS [facility]; Protocol Last Admin: 05/02/25 07:21 Dose: Not Given Documented By: CLARISSA Non-Admin Reason: No Insulin Coverage Lactulose (Lactulose 20 Gm/30 Ml Solution) 30 gm PO BID [facility] Last Admin: 05/02/25 09:38 Dose: 30 gm Documented By: CLARISSA Lidocaine (Lidocaine 4 % Patch Adh..Patch) 1 patch TRANSDERMA DAILY [facility]; Protocol Last Admin: 05/02/25 09:38 Dose: 1 patch Documented By: CLARISSA Lisinopril (Lisinopril 5 Mg Tablet) 5 mg PO DAILY [facility]; Protocol Last Admin: 05/02/25 09:38 Dose: 5 mg Documented By: CLARISSA Nystatin (Nystatin Powder 15 Gm Bottle) 1 appl TOPICAL BID [facility]; Protocol Last Admin: 05/02/25 09:53 Dose: 1 appl Documented By: CLARISSA Omeprazole (Omeprazole 20 Mg Capsule.Dr) 20 mg PO DAILY@0630 [facility] Last Admin: 05/02/25 06:19 Dose: 20 mg Documented By: TITO-DESSK Oxycodone HCl (Oxycodone Hcl Immed Release 5 Mg Tablet) 5 mg PO Q12H PRN PRN Reason: Pain, Severe (Pain Scale 7-10) Last Admin: 05/01/25 21:51 Dose: 5 mg Documented By: TITO-DESSK Pravastatin Sodium (Pravastatin Sodium 40 Mg Tablet) 40 mg PO BEDTIME [facility] Last Admin: 05/01/25 21:50 Dose: 40 mg Documented By: TITO-JATINSK Sodium Chloride (0.9 % Sodium Chloride Flush 3 Ml Syringe) 3 ml IVFLUSH QSHIFT [facility] Last Admin: 05/02/25 09:45 Dose: 3 ml Documented By: CLARISSA Trazodone HCl (Trazodone Hcl 25 Mg Halftab) 25 mg PO TID PRN PRN Reason: Pain, Severe (Pain Scale 7-10) Last Admin: 04/28/25 16:13 Dose: 25 mg Documented By: SAIDAA Labs 04/25/25 07:00 04/27/25 08:44 Labs: Laboratory Results - last 24 hr 05/01/25 05/01/25 05/01/25 10:53 15:54 21:14 POC Glucose 130 H 152 H 141 H 05/02/25 07:06 POC Glucose 113 Assessment and Plan (1) Acute exacerbation of chronic obstructive pulmonary disease: Status: Acute (2) Acute respiratory failure with hypoxia and hypercarbia: Status: Acute Plan 75-year-old gentleman with underlying hypertension, diabetes mellitus, COPD, chronic back pain, and unspecified congestive heart failure present in on 04/22/2025 complaining of slowly worsening dyspnea. On ER patient noted to be hypoxic and hypercapnic requiring BiPAP support. He was started on empiric diuresis and initially admitted to the intensive care unit, downgraded to the medical floor on Acute hypoxic and hypercapnic respiratory failure multifactorial due to Chf (HfpEf) exacerbation & obesity hyperventilation syndrome requiring BiPAP support continue nocturnal BiPAP and daytime prn for naps; needs bipap arranged prior to d/c CT chest with stigmata of chronic aspiration - seen by STITCH MARKER rec NDD2 diet and elevating bed to highest degree pt will tolerate (pt refuses to sit up) overall net negative 10L with IV diuresis, now transitioned to po lasix had overnight sleep study requires continuous oxygen 2L NC continue nebs, incentive spirometry 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 Generalized weak/limited mobility family/care takers says he has been eating in lying position for many years discharged from PT HTN lisinopril resumed at low dose 2.5 mg, will increase to 5mg (on 10mg at baseline) Chronic back pain oxycodone has been on hold due to hypercarbic respiratory failure pt requests to have it resumed, says his mobility will be better if his back pain is controlled monitor for oversedation DVT prophylaxis subQ Heparin Quality Stroke Does the patient have a stroke diagnosis?: No VTE Prior VTE?: No VTE Risk Level:: Medical - moderate - high VTE Device Contraindication: N/A - Device Ordered VTE Drug Contraindication: N/A - Med Ordered
[2025-05-02 11:42] LABS: Glucose, Whole Blood 150 mg/dL (60-115)
[2025-05-02 16:20] LABS: Glucose, Whole Blood 193 mg/dL (60-115)
[2025-05-02 20:39] LABS: Glucose, Whole Blood 156 mg/dL (60-115)
[2025-05-03 01:21] VITALS: PULSE 65; RESP 18; O2SAT 93
[2025-05-03] MEDS: 0.9 % Sodium Chloride Flush 3 ML SYRINGE IVFLUSH ×4 (01:58→21:21)
[2025-05-03 03:24] VITALS: BP 117/57; PULSE 70; RESP 18; TEMP 36.6; O2SAT 94
[2025-05-03 06:00] VITALS: BMI 79.2
[2025-05-03 07:20] VITALS: BP 133/74; PULSE 69; RESP 18; TEMP 36.9; O2SAT 98
[2025-05-03 07:27] LABS: Glucose, Whole Blood 131 mg/dL (60-115)
[2025-05-03] MEDS: Lidocaine 4 % Patch ADH..PATCH 1 PATCH TRANSDERMA (07:52)
[2025-05-03 08:51] LABS: Hematocrit 51.8 % (42.0-52.0); Hemoglobin 15.7 g/dl (14.0-18.0); Mean Corpuscular HGB Conc 30.3 g/dl (31.0-36.0); Mean Corpuscular Hemoglobin 25.5 pg (27.0-33.0); Mean Corpuscular Volume 84.1 fL (80.0-98.0); NRBC Abs Auto 0.000 X10*3/uL (0.0-0.012); NRBC Pct Auto 0.0 /100WBC (0.0-0.2); Platelet Count 150 X10*3/uL (160-400); Red Blood Count 6.16 X10*6/uL (4.60-5.80); White Blood Count 5.3 X10*3/uL (4.8-10.8)
[2025-05-03 09:02] LABS: Anion Gap 13 (12-20); Blood Urea Nitrogen 13 mg/dL (9-16); Calcium 9.5 mg/dL (8.4-10.2); Carbon Dioxide 36 mmol/L (22-29); Chloride 100 mmol/L (96-108); Creatinine Clr Calc Pharmacy 154.1; Estimated Glomerular Filt Rate > 60; Potassium 4.2 mmol/L (3.3-5.1); Sodium 145 mmol/L (135-145)
[2025-05-03 11:13] LABS: Glucose, Whole Blood 146 mg/dL (60-115)
[2025-05-03 11:31] VITALS: BP 116/62; PULSE 80; RESP 16; TEMP 36.4
--- NOTE | 2025-05-03 11:49 | HO.PM.IMPN ---
Subjective Subjective Date of Service: 05/03/25 Interval History: Follow-up for hypercarbic respiratory failure No overnight events Review of Systems Review of Systems: Yes all other systems are reviewed and are negative Constitutional Constitutional: Denies chills and Denies fever(s) Physical Exam Exam: Exam: Appearing in no acute distress lung sounds are clear to auscultation heart regular rate rhythm, clear S1, S2 positive bowel sounds, abdomen is soft, nontender neuro patient is alert x3, no focal deficits Vital Signs: Vital Signs: Last Vital Signs Temp 97.5 F 05/03/25 11:31 Pulse 80 05/03/25 11:31 Resp 16 05/03/25 11:31 BP 116/62 05/03/25 11:31 Pulse Ox 98 05/03/25 07:20 O2 Del Method Oxymask 05/03/25 11:31 O2 Flow Rate 3 05/03/25 11:31 FiO2 30 05/01/25 08:00 Oxygen Flow Rate 6 05/03/25 00:00 BMI result Body Mass Index 79.2 Objective Data Active Medications Acetaminophen (Acetaminophen 325 Mg Tablet) 975 mg PO Q6H PRN PRN Reason: Fever Last Admin: 04/30/25 09:53 Dose: 975 mg Documented By: LIYA Dextrose (Dextrose 50 % 25 Gm/50 Ml Syringe) 25 gm IVPUSH Q15M PRN; Protocol PRN Reason: per Hypoglycemia Standing Ord. Furosemide (Furosemide 20 Mg Tablet) 20 mg PO DAILY [facility]; Protocol Last Admin: 05/03/25 07:52 Dose: 20 mg Documented By: CLARISSA Heparin Sodium (Porcine) (Heparin Sodium,Porcine 5,000 Unit/Ml Vial) 5,000 unit SUBCUT Q8H [facility] Last Admin: 05/03/25 11:32 Dose: 5,000 unit Documented By: CLARISSA Insulin Human Lispro (Insulin Lispro 100 Unit/Ml 3 Ml Vial) 0 unit SUBCUT QIDACHS [facility]; Protocol Last Admin: 05/03/25 11:26 Dose: Not Given Documented By: CLARISSA Non-Admin Reason: No Insulin Coverage Lactulose (Lactulose 20 Gm/30 Ml Solution) 30 gm PO BID [facility] Last Admin: 05/03/25 07:52 Dose: 30 gm Documented By: CLARISSA Lidocaine (Lidocaine 4 % Patch Adh..Patch) 1 patch TRANSDERMA DAILY [facility]; Protocol Last Admin: 05/03/25 07:52 Dose: 1 patch Documented By: CLARISSA Lisinopril (Lisinopril 5 Mg Tablet) 5 mg PO DAILY [facility]; Protocol Last Admin: 05/03/25 07:52 Dose: 5 mg Documented By: CLARISSA Nystatin (Nystatin Powder 15 Gm Bottle) 1 appl TOPICAL BID [facility]; Protocol Last Admin: 05/03/25 07:54 Dose: 1 appl Documented By: CLARISSA Omeprazole (Omeprazole 20 Mg Capsule.Dr) 20 mg PO DAILY@0630 [facility] Last Admin: 05/03/25 05:54 Dose: 20 mg Documented By: AKASH Oxycodone HCl (Oxycodone Hcl Immed Release 5 Mg Tablet) 5 mg PO Q12H PRN PRN Reason: Pain, Severe (Pain Scale 7-10) Last Admin: 05/01/25 21:51 Dose: 5 mg Documented By: AKASH Pravastatin Sodium (Pravastatin Sodium 40 Mg Tablet) 40 mg PO BEDTIME [facility] Last Admin: 05/02/25 20:50 Dose: 40 mg Documented By: AKASH Sodium Chloride (0.9 % Sodium Chloride Flush 3 Ml Syringe) [facility] Last Admin: 05/03/25 07:53 Dose: 3 ml Documented By: CLARISSA Trazodone HCl (Trazodone Hcl 25 Mg Halftab) 25 mg PO TID PRN PRN Reason: Pain, Severe (Pain Scale 7-10) Last Admin: 04/28/25 16:13 Dose: 25 mg Documented By: SAIDAA Labs 05/03/25 08:06 05/03/25 08:06 Labs: Laboratory Results - last 24 hr 05/02/25 05/02/25 05/03/25 16:16 20:36 07:23 MCV MCH MCHC RDW Plt Count MPV Absolute Nucleated RBC Nucleated RBC % (auto) Anion Gap Estim Creat Clear Calc Estimated GFR POC Glucose 193 H 156 H 131 H Random Glucose Calcium 05/03/25 05/03/25 08:06 11:10 MCV 84.1 MCH 25.5 L MCHC 30.3 L RDW 19.9 H Plt Count 150 L MPV 10.5 Absolute Nucleated RBC 0.000 Nucleated RBC % (auto) 0.0 Anion Gap 13 Estim Creat Clear Calc 154.1 Estimated GFR > 60 POC Glucose 146 H Random Glucose 111 Calcium 9.5 D Assessment and Plan (1) Acute exacerbation of chronic obstructive pulmonary disease: Status: Acute (2) Acute respiratory failure with hypoxia and hypercarbia: Status: Acute Plan 75-year-old gentleman with underlying hypertension, diabetes mellitus, COPD, chronic back pain, and unspecified congestive heart failure present in on 04/22/2025 complaining of slowly worsening dyspnea. On ER patient noted to be hypoxic and hypercapnic requiring BiPAP support. He was started on empiric diuresis and initially admitted to the intensive care unit, downgraded to the medical floor on Acute hypoxic and hypercapnic respiratory failure multifactorial due to Chf (HfpEf) exacerbation & obesity hyperventilation syndrome requiring BiPAP support continue nocturnal BiPAP and daytime prn for naps; needs bipap arranged prior to d/c CT chest with stigmata of chronic aspiration - seen by WAREHOUSE MATERIAL HANDLER rec NDD2 diet and elevating bed to highest degree pt will tolerate (pt refuses to sit up) overall net negative 10L with IV diuresis, now transitioned to po lasix had overnight sleep study requires continuous oxygen 2L NC continue nebs, incentive spirometry 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 Generalized weak/limited mobility family/care takers says he has been eating in lying position for many years discharged from PT HTN lisinopril resumed at low dose 2.5 mg, will increase to 5mg (on 10mg at baseline) Chronic back pain oxycodone has been on hold due to hypercarbic respiratory failure pt requests to have it resumed, says his mobility will be better if his back pain is controlled monitor for oversedation DVT prophylaxis subQ Heparin Quality Stroke Does the patient have a stroke diagnosis?: No VTE Prior VTE?: No VTE Risk Level:: Medical - moderate - high VTE Device Contraindication: N/A - Device Ordered VTE Drug Contraindication: N/A - Med Ordered
[2025-05-03] MEDS: oxyCODONE HCl Immed Release 5 MG TABLET PO (14:44)
[2025-05-03 15:35] VITALS: BP 105/52; PULSE 72; RESP 20; TEMP 36.1; O2SAT 95
[2025-05-03 16:06] LABS: Glucose, Whole Blood 143 mg/dL (60-115)
[2025-05-03 19:04] VITALS: BP 115/62; PULSE 70; RESP 22; TEMP 36.4; O2SAT 93
[2025-05-03 20:40] LABS: Glucose, Whole Blood 199 mg/dL (60-115)
[2025-05-04 01:14] VITALS: PULSE 74; RESP 25; O2SAT 96
[2025-05-04 03:54] VITALS: BP 135/75; PULSE 65; RESP 20; TEMP 36.1; O2SAT 93
[2025-05-04 05:47] VITALS: BMI 40.9
[2025-05-04 08:00] VITALS: BP 135/66; PULSE 71; RESP 20; TEMP 36.7; O2SAT 97
[2025-05-04] MEDS: Lidocaine 4 % Patch ADH..PATCH 1 PATCH TRANSDERMA (08:15)
[2025-05-04] MEDS: oxyCODONE HCl Immed Release 5 MG TABLET PO ×2 (08:15→22:12)
[2025-05-04 08:43] LABS: Glucose, Whole Blood 113 mg/dL (60-115)
--- NOTE | 2025-05-04 10:43 | P.PNIM_ITS ---
Subjective Subjective Date of Service: 05/04/25 Interval History: Follow-up for hypercarbic respiratory failure No overnight events Review of Systems Review of Systems: Yes all other systems are reviewed and are negative Constitutional Constitutional: Denies chills and Denies fever(s) Physical Exam 2 Exam: Exam: Appearing in no acute distress lung sounds are clear to auscultation heart regular rate rhythm, clear S1, S2 positive bowel sounds, abdomen is soft, nontender neuro patient is alert x3, no focal deficits Obese Vital Signs: Vital Signs: Last Vital Signs Temp 98.0 F 05/04/25 08:00 Pulse 71 05/04/25 08:00 Resp 20 05/04/25 08:00 BP 135/66 05/04/25 08:00 Pulse Ox 97 05/04/25 08:00 O2 Del Method Nasal Cannula 05/04/25 08:00 O2 Flow Rate 3 05/04/25 08:00 FiO2 30 05/01/25 08:00 Oxygen Flow Rate 6 05/03/25 00:00 BMI result Body Mass Index 40.9 Objective Data Active Medications Acetaminophen (Acetaminophen 325 Mg Tablet) 975 mg PO Q6H PRN PRN Reason: Fever Last Admin: 05/04/25 00:02 Dose: 975 mg Documented By: RICHARD Dextrose (Dextrose 50 % 25 Gm/50 Ml Syringe) 25 gm IVPUSH Q15M PRN; Protocol PRN Reason: per Hypoglycemia Standing Ord. Furosemide (Furosemide 20 Mg Tablet) 20 mg PO DAILY [facility]; Protocol Last Admin: 05/04/25 08:15 Dose: 20 mg Documented By: SHARIF Heparin Sodium (Porcine) (Heparin Sodium,Porcine 5,000 Unit/Ml Vial) 5,000 unit SUBCUT Q8H [facility] Last Admin: 05/04/25 03:51 Dose: 5,000 unit Documented By: RICHARD Insulin Human Lispro (Insulin Lispro 100 Unit/Ml 3 Ml Vial) 0 unit SUBCUT QIDACHS [facility]; Protocol Last Admin: 05/04/25 08:15 Dose: Not Given Documented By: SHARIF Non-Admin Reason: No Insulin Coverage Lactulose (Lactulose 20 Gm/30 Ml Solution) 30 gm PO BID [facility] Last Admin: 05/04/25 08:15 Dose: 30 gm Documented By: SHARIF Lidocaine (Lidocaine 4 % Patch Adh..Patch) 1 patch TRANSDERMA DAILY [facility]; Protocol Last Admin: 05/04/25 08:15 Dose: 1 patch Documented By: SHARIF Lisinopril (Lisinopril 5 Mg Tablet) 5 mg PO DAILY [facility]; Protocol Last Admin: 05/04/25 08:15 Dose: 5 mg Documented By: SHARIF Nystatin (Nystatin Powder 15 Gm Bottle) 1 appl TOPICAL BID [facility]; Protocol Last Admin: 05/04/25 08:18 Dose: 1 appl Documented By: SHARIF Omeprazole (Omeprazole 20 Mg Capsule.Dr) 20 mg PO DAILY@0630 [facility] Last Admin: 05/04/25 06:56 Dose: 20 mg Documented By: RICHARD Oxycodone HCl (Oxycodone Hcl Immed Release 5 Mg Tablet) 5 mg PO Q12H PRN PRN Reason: Pain, Severe (Pain Scale 7-10) Last Admin: 05/04/25 08:15 Dose: 5 mg Documented By: SHARIF Pravastatin Sodium (Pravastatin Sodium 40 Mg Tablet) 40 mg PO BEDTIME [facility] Last Admin: 05/03/25 21:20 Dose: 40 mg Documented By: RICHARD Sodium Chloride (0.9 % Sodium Chloride Flush 3 Ml Syringe) 3 ml IVFLUSH QSHIFT [facility] Last Admin: 05/04/25 08:15 Dose: Not Given Documented By: SHARIF Non-Admin Reason: Previously Administered Trazodone HCl (Trazodone Hcl 25 Mg Halftab) 25 mg PO TID PRN PRN Reason: Pain, Severe (Pain Scale 7-10) Last Admin: 04/28/25 16:13 Dose: 25 mg Documented By: SHANNON Labs 05/03/25 08:06 05/03/25 08:06 Labs: Laboratory Results - last 24 hr 05/03/25 05/03/25 05/03/25 11:10 16:00 20:24 POC Glucose 146 H 143 H 199 H 05/04/25 08:33 POC Glucose 113 Assessment and Plan (1) Acute exacerbation of chronic obstructive pulmonary disease: Status: Acute (2) Acute respiratory failure with hypoxia and hypercarbia: Status: Acute Plan 75-year-old gentleman with underlying hypertension, diabetes mellitus, COPD, chronic back pain, and unspecified congestive heart failure present in on 04/22/2025 complaining of slowly worsening dyspnea. On ER patient noted to be hypoxic and hypercapnic requiring BiPAP support. He was started on empiric diuresis and initially admitted to the intensive care unit, downgraded to the medical floor on Acute hypoxic and hypercapnic respiratory failure multifactorial due to Chf (HfpEf) exacerbation & obesity hyperventilation syndrome requiring BiPAP support continue nocturnal BiPAP and daytime prn for naps; needs bipap arranged prior to d/c CT chest with stigmata of chronic aspiration - seen by TRIPLE AIR VALVE TESTER rec NDD2 diet and elevating bed to highest degree pt will tolerate (pt refuses to sit up) overall net negative 10L with IV diuresis, now transitioned to po lasix had overnight sleep study requires continuous oxygen 2L NC continue nebs, incentive spirometry 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 Generalized weak/limited mobility family/care takers says he has been eating in lying position for many years discharged from PT HTN lisinopril resumed at low dose 2.5 mg, will increase to 5mg (on 10mg at baseline) Chronic back pain oxycodone has been on hold due to hypercarbic respiratory failure pt requests to have it resumed, says his mobility will be better if his back pain is controlled monitor for oversedation DVT prophylaxis subQ Heparin Quality Stroke Does the patient have a stroke diagnosis?: No VTE Prior VTE?: No VTE Risk Level:: Medical - moderate - high VTE Device Contraindication: N/A - Device Ordered VTE Drug Contraindication: N/A - Med Ordered
[2025-05-04 11:48] LABS: Glucose, Whole Blood 163 mg/dL (60-115)
[2025-05-04 15:48] VITALS: BP 98/46; PULSE 66; RESP 20; TEMP 36.3; O2SAT 96
--- NOTE | 2025-05-04 16:37 | MHC.CM.PN ---
EMR REVIEWED, PT STILL AWAITING [facility] AUTH FOR BIPAP, PT'S NAUN UPDATED WHEN CM RECEIVED CALL FROM HER, PT'S DTR NAUN ALSO COMPLAINED AND HAD CONCERNS REGARDING PT'S CARE, CHARGE NURSE AWARE AND PT EXPERIENCE SPOKE W/DTR AND PT, DTR PLEASED W/OUTCOME, CM WILL CONT TO FOLLOW DC NEEDS.
[2025-05-04] MEDS: 0.9 % Sodium Chloride Flush 3 ML SYRINGE IVFLUSH ×2 (18:57→22:14)
[2025-05-04 19:13] VITALS: BP 82/46; PULSE 72; RESP 12; TEMP 36.7; O2SAT 92
[2025-05-04 21:11] LABS: Glucose, Whole Blood 160 mg/dL (60-115)
[2025-05-05] VITALS (8 sets, daily range): BP systolic 116–124; BP diastolic 55–66; PULSE 65–84; RESP 18–26; TEMP 36.2–37.2; O2SAT 90–96; BMI 40.4
[2025-05-05] MEDS: 0.9 % Sodium Chloride Flush 3 ML SYRINGE IVFLUSH ×2 (10:19→16:28)
[2025-05-05] MEDS: Lidocaine 4 % Patch ADH..PATCH 1 PATCH TRANSDERMA (10:19)
--- NOTE | 2025-05-05 11:07 | HO.PM.IMPN ---
Subjective Subjective Date of Service: 05/05/25 Interval History: Follow-up for hypercarbic respiratory failure No overnight events Review of Systems Review of Systems: Yes all other systems are reviewed and are negative Constitutional Constitutional: Denies chills and Denies fever(s) Physical Exam Exam: Exam: Appearing in no acute distress lung sounds are clear to auscultation heart regular rate rhythm, clear S1, S2 positive bowel sounds, abdomen is soft, nontender neuro patient is alert x3, no focal deficits Obese Vital Signs: Vital Signs: Last Vital Signs Temp 97.2 F 05/05/25 07:09 Pulse 65 05/05/25 07:09 Resp 20 05/05/25 07:45 BP 116/55 L 05/05/25 07:09 Pulse Ox 95 05/05/25 07:09 O2 Del Method BiPAP 05/05/25 07:09 O2 Flow Rate 3 05/04/25 19:13 FiO2 30 05/01/25 08:00 Oxygen Flow Rate 6 05/03/25 00:00 BMI result Body Mass Index 40.4 Objective Data Active Medications Acetaminophen (Acetaminophen 325 Mg Tablet) 975 mg PO Q6H PRN PRN Reason: Fever Last Admin: 05/04/25 00:02 Dose: 975 mg Documented By: RICHARD Dextrose (Dextrose 50 % 25 Gm/50 Ml Syringe) 25 gm IVPUSH Q15M PRN; Protocol PRN Reason: per Hypoglycemia Standing Ord. Furosemide (Furosemide 20 Mg Tablet) 20 mg PO DAILY [facility]; Protocol Last Admin: 05/05/25 10:19 Dose: 20 mg Documented By: MARTINA Heparin Sodium (Porcine) (Heparin Sodium,Porcine 5,000 Unit/Ml Vial) 5,000 unit SUBCUT Q8H [facility] Last Admin: 05/05/25 10:19 Dose: 5,000 unit Documented By: MARTINA Insulin Human Lispro (Insulin Lispro 100 Unit/Ml 3 Ml Vial) 0 unit SUBCUT QIDACHS [facility]; Protocol Last Admin: 05/05/25 08:41 Dose: Not Given Documented By: MARTINA Non-Admin Reason: No Insulin Coverage Lactulose (Lactulose 20 Gm/30 Ml Solution) 30 gm PO BID [facility] Last Admin: 05/05/25 10:19 Dose: Not Given Documented By: MARTINA Non-Admin Reason: Patient Refused Lidocaine (Lidocaine 4 % Patch Adh..Patch) 1 patch TRANSDERMA DAILY [facility]; Protocol Last Admin: 05/05/25 10:19 Dose: 1 patch Documented By: MARTINA Lisinopril (Lisinopril 5 Mg Tablet) 5 mg PO DAILY [facility]; Protocol Last Admin: 05/05/25 10:18 Dose: 5 mg Documented By: MARTINA Nystatin (Nystatin Powder 15 Gm Bottle) 1 appl TOPICAL BID [facility]; Protocol Last Admin: 05/04/25 22:13 Dose: 1 appl Documented By: RICHARD(2) Omeprazole (Omeprazole 20 Mg Capsule.Dr) 20 mg PO DAILY@0630 [facility] Last Admin: 05/05/25 06:39 Dose: 20 mg Documented By: RICHARD(2) Oxycodone HCl (Oxycodone Hcl Immed Release 5 Mg Tablet) 5 mg PO Q12H PRN PRN Reason: Pain, Severe (Pain Scale 7-10) Last Admin: 05/04/25 22:12 Dose: 5 mg Documented By: RICHARD(2) Pravastatin Sodium (Pravastatin Sodium 40 Mg Tablet) 40 mg PO BEDTIME [facility] Last Admin: 05/04/25 22:12 Dose: 40 mg Documented By: RICHARD(2) Sodium Chloride (0.9 % Sodium Chloride Flush 3 Ml Syringe) [facility] Last Admin: 05/05/25 10:19 Dose: 3 ml Documented By: MARTINA Trazodone HCl (Trazodone Hcl 25 Mg Halftab) 25 mg PO TID PRN PRN Reason: Pain, Severe (Pain Scale 7-10) Last Admin: 04/28/25 16:13 Dose: 25 mg Documented By: SHANNON Labs 05/03/25 08:06 05/03/25 08:06 Labs: Laboratory Results - last 24 hr 05/04/25 05/04/25 11:11 20:58 POC Glucose 163 H 160 H Assessment and Plan (1) Acute exacerbation of chronic obstructive pulmonary disease: Status: Acute (2) Acute respiratory failure with hypoxia and hypercarbia: Status: Acute Plan 75-year-old gentleman with underlying hypertension, diabetes mellitus, COPD, chronic back pain, and unspecified congestive heart failure present in on 04/22/2025 complaining of slowly worsening dyspnea. On ER patient noted to be hypoxic and hypercapnic requiring BiPAP support. He was started on empiric diuresis and initially admitted to the intensive care unit, downgraded to the medical floor on Acute hypoxic and hypercapnic respiratory failure multifactorial due to Chf (HfpEf) exacerbation & obesity hyperventilation syndrome requiring BiPAP support continue nocturnal BiPAP and daytime prn for naps; needs bipap arranged prior to d/c CT chest with stigmata of chronic aspiration - seen by NETWORK SYSTEMS OPERATOR rec NDD2 diet and elevating bed to highest degree pt will tolerate (pt refuses to sit up) po lasix requires continuous oxygen 2L NC continue nebs, incentive spirometry Diabetes 2 hba1c 6.5 on glipizide and lantus at baseline >will likely need to be resumed upon discharge continue SSI, ADA diet Morbid obesity BMI 40.4 Encouraged to cutdown calories/lose weight. Generalized weak/limited mobility family/care takers says he has been eating in lying position for many years discharged from PT HTN lisinopril resumed at low dose 2.5 mg, will increase to 5mg (on 10mg at baseline) Chronic back pain oxycodone has been on hold due to hypercarbic respiratory failure pt requests to have it resumed, says his mobility will be better if his back pain is controlled monitor for oversedation DVT prophylaxis subQ Heparin Quality Stroke Does the patient have a stroke diagnosis?: No VTE Prior VTE?: No VTE Risk Level:: Medical - moderate - high VTE Device Contraindication: N/A - Device Ordered VTE Drug Contraindication: N/A - Med Ordered
[2025-05-05 11:13] LABS: Glucose, Whole Blood 119 mg/dL (60-115)
--- NOTE | 2025-05-05 11:23 | MHC.CM.PN ---
Addendum entered by Carie Bowles 05/05/25 15:16: CM received call back from Isreal at [facility], he states the Bipap was authorized by [facility], and per Graeme they can deliver it to the home today. This CM spoke with [facility] who states they have not received confirmation about the Bipap being authorized and they need an authorization number in order for [employer] to go to the home to deliver. Will plan for Bipap delivery tomorrow 05/06, and pt will transport home via BLS once we have confirmation of Bipap delivery. Hospitalist updated. Original Note: EMR reviewed and per MD rounds, pt is medically cleared for discharge pending [facility] insurance auth for his Bipap. This CM met with pt with the assistance of a interventional cardiologist to discuss discharge plans. Pts and daughter present in the conversation via telephone. This CM presented the option of pt going to [facility] while he awaits the insurance approval of the Bipap (which may take up to 10 days). [facility] referral was previously placed and [facility] Bed offers reviewed with pt and his family. Pt states he doesn't want to go to [facility] and wants to go home, he states he will wait here until the Bipap is approved. Pts daughter Lorena and pt repeatedly changing the topic of discharge plans to complaints against the hospital. This CM consistently redirected them to the discussion of discharge plans. Second IMM given 05/05. Number of [place] pointed out to them if they wish to report any concerns about the quality of care he has received here. This CM discussed the option for them to appeal the discharge as he has a safe discharge plan that they are refusing ([facility]). This CM placed a call to Isreal Can, the transitions of care nurse at [facility]. Per Isreal, he states the Bipap supplier [employer] is still waiting on clinical information from [facility]. Respiratory therapy has already provided clinical information to Graeme for the Bipap. Isreal states he will look into this matter and will get back in touch with this CM.
--- NOTE | 2025-05-05 15:16 | PM.DS ---
DS: Providers Provider Date of Service: 05/06/25 Date of admission: 04/22/25 06:42 Date of discharge: 05/06/25 Primary care physician: Terrence Ahumada MD DS: Diagnosis Discharge Diagnosis (1) Acute exacerbation of chronic obstructive pulmonary disease: Status: Acute (2) Acute respiratory failure with hypoxia and hypercarbia: Status: Acute DS: Summary Hospital Course Hospital Course: History and physical as per admitting provider. 75-year-old gentleman with underlying hypertension, diabetes mellitus, COPD, chronic back pain, and unspecified congestive heart failure present in on 04/22/2025 complaining of slowly worsening dyspnea. On ER patient noted to be hypoxic and hypercapnic requiring BiPAP support. He was started on empiric diuresis and admitted to the intensive care unit. 75-year-old man mostly bed-bound treated for acute hypoxic and hypercapnic respiratory failure with heart failure with preserved ejection fraction exacerbation and obesity hypoventilation syndrome requiring BiPAP support. He had not had BiPAP at home therefore he has been hospitalized waiting for authorization to receive BiPAP machine at home. CT chest showed stigmata of chronic aspiration. Patient is mostly bed-bound and tends to do most of his activities including eating lying down. Was encouraged to try to sit up but patient has been declining. He was treated with he will Lasix for the heart failure, he continues to require oxygen of 2 L which is baseline for him. He should also continue with incentive spirometry at home. Diabetes mellitus type 2. Hemoglobin A1c 6.5 treated with sliding scale during hospitalization. May continue glipizide and Lantus at home. Morbid obesity. BMI 40.4. Discussed importance of weight management as this may be contributing to worsening of other comorbidities Generalized weakness with limited mobility. Has caretakers in the home and was discharged from physical therapy during hospitalization. Hypertension. Stable blood pressure during hospitalization. Continue lisinopril 5 mg daily sign Chronic back pain. Treated with oxycodone during hospitalization. May continue at home. Time Attestation Discharge Coordination Time (in mins): 45 Quality: Safe Use of Opioids Does Pt have an Active Cancer Diagnosis on the Problem List?: No Quality: Stroke Does the patient have a stroke diagnosis?: No Physical Exam Exam: Exam: Appearing in no acute distress head is normocephalic atraumatic eyes pupils are PERRLA sclera is anicteric mouth throat mucous membranes are intact and moist neck is supple no lymphadenopathy, no JVD noted lung sounds are clear to auscultation heart regular rate rhythm, clear S1, S2 positive bowel sounds, abdomen is soft, nontender neuro patient is alert x3, no focal deficits Obese, bed-bound Vital Signs: Vital Signs: Last Vital Signs Temp 97.2 F 05/05/25 07:09 Pulse 65 05/05/25 07:09 Resp 20 05/05/25 07:45 BP 116/55 L 05/05/25 07:09 Pulse Ox 95 05/05/25 07:09 O2 Del Method BiPAP 05/05/25 07:09 O2 Flow Rate 3 05/04/25 19:13 FiO2 30 05/01/25 08:00 Oxygen Flow Rate 6 05/03/25 00:00 BMI result Body Mass Index 40.4 DS: Data Data Completed and Pending Labs on day of discharge: Laboratory Results - last 24 hr 05/04/25 05/05/25 20:58 11:06 POC Glucose 160 H 119 H Discharge Plan Discharge Anticipated Discharge Date/Time: 05/06/25 08:16 Patient Disposition: Home Health Service Discharge Diagnosis: Acute hypoxic hypercapnic respiratory failure Referrals: [facility] [Other] - 1 Day Referral Note: BIPAP AND HOME OXYGEN [facility] [Outside] - 1 Day Referral Note: Longterm Name,MD Terrence [Primary Care Provider, Internal Medicine] - 1 Week Discharge Medications: New lisinopril 5 mg Tablet 5 mg PO DAILY Qty: 30 0RF Protocol: Hold for SBP< HOLD for SBP < : 90 Continued insulin glargine [Lantus U-100 Insulin] 100 unit/mL solution 25 unit subcut DAILY oxycodone-acetaminophen 5-325 mg tablet 1 tab PO Q8H PRN (Reason: Pain) furosemide 20 mg tablet 20 mg PO DAILY omeprazole 20 mg capsule,delayed release(DR/EC) 20 mg PO DAILY@0630 glipizide 5 mg tablet extended release 24hr 5 mg PO DAILY pravastatin 40 mg tablet 40 mg PO BEDTIME Discontinued lisinopril 10 mg tablet 10 mg PO DAILY Discharge Orders: Discharge Order (Routine); Ordered 05/06/25 Ordered By: Angelic Carrero Diet: Advance to usual diet Activity on Discharge: As tolerated Stand Alone Forms: Patient Portal Discharge page Print Language: Nigerien Care Plan Goals: Start using BiPAP at nighttime and with naps Health Concerns: Acute hypoxic hypercapnic respiratory failure Plan of Treatment: Follow up with primary care provider as needed Take all medications as prescribed Assessment: See discharge summary
[2025-05-05 16:14] LABS: Glucose, Whole Blood 155 mg/dL (60-115)
[2025-05-05] MEDS: oxyCODONE HCl Immed Release 5 MG TABLET PO (16:30)
[2025-05-05 16:38] LABS: Glucose, Whole Blood 156 mg/dL (60-115)
[2025-05-05 16:38] LABS: Glucose, Whole Blood 135 mg/dL (60-115)
[2025-05-05 20:02] LABS: Glucose, Whole Blood 173 mg/dL (60-115)
[2025-05-06 03:20] VITALS: BP 129/72; PULSE 71; RESP 18; TEMP 36.2; O2SAT 95
[2025-05-06 04:51] VITALS: PULSE 70; RESP 20; O2SAT 95
[2025-05-06 06:00] VITALS: BMI 40.4
[2025-05-06 07:40] LABS: Glucose, Whole Blood 122 mg/dL (60-115)
[2025-05-06 07:42] VITALS: BP 134/70; PULSE 74; RESP 20; TEMP 36.4; O2SAT 93
--- NOTE | 2025-05-06 08:21 | W.MHC.F2F ---
Service Date Service Date: 05/06/25 Encounter Date of encounter: 05/06/25 Reasons for Services Signs and symptoms assessed: Acute hypoxic and hypercarbic respiratory failure requiring BiPAP at bedtime Reason for half-way: CV/CP assess and/or care Homebound: Leaving the home is medically contraindicated at this time without the asist of a device and/or another person due th the listed conditions above and below. Reason homebound: bedbound/chairbound Certification: Based on the above findings, I certify that this patient is confined to the home and needs intermittent half-way care, physical therapy and/or speech therapy, or continues to need occupational therapy. The patient is under my care, and I have initiated the establishment of the plan of care. The patient will be followed by a physician who will periodically review the plan of care. Time Spent With Patient Time: Total time managing care of this patient today ____ minutes.
--- NOTE | 2025-05-06 08:48 | MHC.CM.PN ---
Addendum entered by Radha Rogers RN 05/06/25 09:43: [facility] BOOKING ID #[id number] Original Note: PT MEDICALLY CLEARED FOR DC TO [facility] AT [address] [place] [address] W/[facility] FOR HOME O2 AND BIPAP (WILL BE DELIVERED TODAY) AND NEW [facility] FOR SN, [facility] AWARE AND AGREEABLE TO [facility] FOR BLS TRANSPORT at 12pm
[2025-05-06] MEDS: 0.9 % Sodium Chloride Flush 3 ML SYRINGE IVFLUSH (08:52)
[2025-05-06] MEDS: Lidocaine 4 % Patch ADH..PATCH 1 PATCH TRANSDERMA (10:56)
[2025-05-06 11:38] LABS: Glucose, Whole Blood 136 mg/dL (60-115)
[2025-05-06 12:21] VITALS: BP 140/71; PULSE 92; RESP 16; O2SAT 88
== END 2025-05-06 12:26 | disposition home health service (06) | DRG 291 ==
LOC: HO.ED 04-22 04:57 → HO.EDOVER 04-22 06:52 → HO.ICU 04-22 06:59 → HO.IMC 04-24 14:16
PROVIDERS: Internal Medicine; Internal Medicine Pulmonary Disease; Physician Assistant Medical; Admitting Provider Nurse Practitioner Family; Emergency Provider Emergency Medicine; PCP Internal Medicine Geriatric Medicine; Visit Provider Nurse Practitioner Acute Care
DX: I11.0 Hypertensive heart disease with heart failure (principal); I50.33 Acute on chronic diastolic (congestive) heart failure; J96.01 Acute respiratory failure with hypoxia; J96.02 Acute respiratory failure with hypercapnia; E66.2 Morbid (severe) obesity with alveolar hypoventilation; Z68.41 Body mass index [BMI] 40.0-44.9, adult; E87.0 Hyperosmolality and hypernatremia; J98.11 Atelectasis; J44.1 Chronic obstructive pulmonary disease with (acute) exacerbation; M54.59 Other low back pain; R53.81 Other malaise; G89.29 Other chronic pain; E11.9 Type 2 diabetes mellitus without complications; Z71.3 Dietary counseling and surveillance; Z20.822 Contact with and (suspected) exposure to COVID-19; Z74.01 Bed confinement status; Z79.4 Long term (current) use of insulin; Z79.84 Long term (current) use of oral hypoglycemic drugs; Z79.899 Other long term (current) drug therapy
CPT/HCPCS: 36415; 36600; 71045; 71250; 80048; 80053; 80307; 81003; 82040; 82803; 82947; 83036; 83605; 83735; 83880; 84100; 84484; 85025; 85027; 85610; 87040; 87637; 92526; 92610; 93005; 93306; 94640; 94660; 94799; 97163; 97530; 99285; J0696; J1120; J1171; J1271; J1644; J1938; Q9957

== ENCOUNTER → 2025-04-22 03:09 | Outpatient (BNV) | payer OTHER, SELFPAY | PROVIDERS: Admitting Provider Nurse Practitioner Family; Emergency Provider Emergency Medicine; PCP Internal Medicine Geriatric Medicine; Visit Provider Internal Medicine | DX: I42.2 Other hypertrophic cardiomyopathy (principal) | CPT/HCPCS: 93306 ==

== ENCOUNTER → 2025-04-22 06:42 | Outpatient (BNV) | payer OTHER, SELFPAY | PROVIDERS: Admitting Provider Nurse Practitioner Family; Emergency Provider Emergency Medicine; PCP Internal Medicine Geriatric Medicine; Visit Provider Internal Medicine | DX: I50.9 Heart failure, unspecified (principal); J96.01 Acute respiratory failure with hypoxia; J96.02 Acute respiratory failure with hypercapnia | CPT/HCPCS: 99231; 99232; 99499 ==

== ENCOUNTER → 2025-04-22 06:42 | Outpatient (BNV) | payer MEDICARE, SELFPAY | PROVIDERS: Admitting Provider Nurse Practitioner Family; Emergency Provider Emergency Medicine; Visit Provider Internal Medicine Pulmonary Disease | DX: J96.01 Acute respiratory failure with hypoxia (principal); J96.02 Acute respiratory failure with hypercapnia; E11.8 Type 2 diabetes mellitus with unspecified complications; I10 Essential (primary) hypertension | CPT/HCPCS: 99291 ==

== ENCOUNTER → 2025-04-22 | Outpatient (BNV) | payer MEDICARE, SELFPAY | PROVIDERS: Emergency Provider Emergency Medicine; Visit Provider General Practice | DX: J98.11 Atelectasis (principal); R06.02 Shortness of breath | CPT/HCPCS: 71045; 71250 ==